=== PATIENT | female | born 1930 | race Caucasian/White ===

== ENCOUNTER 2019-06-03 11:59 | Inpatient (IN) | payer MEDICARE ==
--- NOTE | 2019-06-03 12:50 | RAD ---
EXAM: Single view of the chest HISTORY: Weakness and cough COMPARISON: 05/10/2019 FINDINGS: Single view of the chest shows an enlarged but stable cardiomediastinal silhouette. Athero sclerotic calcifications are seen in the aorta. There is no evidence of consolidation, mass, or pleural effusion. The bones are unremarkable. IMPRESSION: Cardiomegaly without evidence of acute cardiopulmonary disease
[2019-06-03 13:04] LABS: Bacteria/HPF None Seen HPF (None Seen); Bilirubin Negative (Negative); Blood, Urine Negative (Negative); Clarity Turbid (Clear); Glucose, Urine (Dipstick) Normal (Negative); Leukocyte Negative Leu/uL (Negative); Nitrite Negative (Negative); Protein, Urine (Dipstick) 70 mg/dL (Neg-Trace); RBC/HPF 0-3 HPF (0-3); Squamous Epithelial 0-3 HPF (0-3); WBC/HPF 0-3 HPF (0-3)
[2019-06-03 13:12] LABS: #Lymphocytes 0.6 thou/uL (1.20-3.40); #Monocytes 0.6 thou/uL (0.11-0.59); #Neutrophils 5.6 thou/uL (1.40-6.50); %Eosinophils 0.1 % (0.0-10.0); %Lymphocytes 9.4 % (21.0-51.0); %Monocytes 8.7 % (0.0-10.0); %Neutrophils 81.8 % (42.0-75.0); Hemoglobin 6.1 g/dL (12.0-16.0); Mean Corpuscular HGB CONC 31.3 g/dL (32.0-36.0); Mean Corpuscular Hemoglobin 27.1 pg (27.0-31.0); Mean Corpuscular Volume 86.6 fL (78.0-98.0); Mean Platelet Volume 9.2 fL (7.4-10.4); Platelet Count 255 thou/uL (130-400); RBC Distribution Width 17.9 % (11.5-14.5); Red Blood Cell (RBC) Count 2.26 mill/uL (4.20-5.40); White Blood Cell (WBC) Count 6.8 thou/uL (4.8-10.8)
[2019-06-03 13:15] LABS: Bicarbonate (HCO3v) 23.7 mmol/L (22.0-28.0); CO2 Tension (PvCO2) 32.8 mmHg (40.0-50.0); Calcium, Ionized 0.86 mmol/L (See Comments:); Chloride 92 mmol/L (98-107); Potassium 4.2 mmol/L (3.5-5.1); Sodium 132 mmol/L (138-145); T. Carbon Dioxide 24.7 mmol/L (22.0-28.0); vO2 Saturation-calc 85.1 % (60.0-85.0)
[2019-06-03 13:42] LABS: ALT (SGPT) 249 U/L (8-55); AST (SGOT) 380 U/L (5-34); Albumin 3.2 g/dL (3.4-4.8); Alkaline Phosphatase 57 U/L (40-110); Anion Gap 28 mmol/L (10-20); BUN (Urea Nitrogen) 35 mg/dL (9.8-20.1); Bilirubin, Total 0.8 mg/dL (0.2-1.2); Calc. Creatinine Clearance 0 mL/min (70-130); Calcium 7.7 mg/dL (7.8-10.44); Carbon Dioxide 22 mmol/L (23-31); Chloride 90 mmol/L (98-107); Estimated GFR-MDRD 22; Globulin 2.3 g/dL (2.4-3.5); Glucose 140 mg/dL (83-110); Lipase 15 U/L (8-78); Potassium 4.6 mmol/L (3.5-5.1); Protein, Total 5.5 g/dL (6.0-8.3); Sodium 135 mmol/L (136-145)
[2019-06-03 14:34] LABS: CKMB 107.5 ng/mL (0-6.6)
[2019-06-03] MEDS ORDERED: cefTRIAXone\\ROCEPHIN 2 GM VIAL ONE (14:46)
[2019-06-03 16:50] LABS: Lactic Acid 7.7 mmol/L (0.5-2.2)
[2019-06-03 17:15] LABS: Critical Call Chem Troponin I RESULT DECREASING; Troponin I 82.262 ng/mL (< 0.028)
[2019-06-03] MEDS ORDERED: Nitroglycerin 0.4 MG TAB (25 Tab Bottle) SL PRN (17:46)
[2019-06-03] MEDS ORDERED: Ondansetron PF 4 MG/2 ML Vial IVP PRN (17:46)
[2019-06-03] MEDS ORDERED: Ondansetron ODT 4 MG TAB PO PRN (17:46)
[2019-06-03] MEDS: Sodium Chloride 0.9% 1,000 ML IV SCH (18:11)
[2019-06-03 19:20] VITALS: BMI 20.6
[2019-06-03 19:47] LABS: Troponin I 96.784 ng/mL (< 0.028)
[2019-06-03] MEDS: Pantoprazole 40 MG VIAL IVP SCH (20:20)
[2019-06-03] MEDS ORDERED: DOPamine 400 MG/D5W 250 ML 250 ML IVPB PRN (20:52)
[2019-06-03 22:49] LABS: Hemoglobin 9.1 g/dL (12.0-16.0); Platelet Count 198 thou/uL (130-400)
--- NOTE | 2019-06-04 00:34 | CON ---
DATE OF CONSULTATION: 06/03/2019 INDICATION FOR CONSULTATION: An 88-year-old female with what appears to be acute myocardial infarction. HISTORY OF PRESENT ILLNESS: This very unfortunate 88-year-old female apparently underwent a cardiac catheterization with probable stent placement or at least possible stent placement about a month ago, I believe over at [facility] by Dr. Roberto Jeffrey. She had been placed on Brilinta and 81 mg of aspirin as well as her other medications, which included a beta eun as well as a statin medication. She apparently lives at home, was doing relatively well, was brought in by adoption services manager or at least a neighbor, who is actually her power of workers compensation defense attorney due to severe weakness. She has been found to have severe anemia, hemoglobin was 6.1 with a hematocrit of 19.5. Her EKG showed acute ST-segment changes with T-wave inversions, which have actually somewhat improved since she has been here, but appears that she has suffered at least ischemia. 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 These have improved slightly after she has been given some blood. Her hemoglobin obviously is still pending. Her troponin I on arrival was 82.9, has increased up to, I believe is now 96. Her MB was 107.5. It appears that she has actually suffered a myocardial infarction, may have occluded her stent. I am uncertain as to where the stent was, IT certainly could have been left anterior descending artery. At this time, she is obviously not a candidate for cardiac roofing laborer since she used to have severe anemia. She denies any chest pain. It is possible that the [place] has already recurred several days ago and it is unclear. She also appears to be acidotic with lactic acid level of 11.8 on admission, which is now decreased to 7.7. She also has acute renal insufficiency with BUN of 35 and creatinine of 2.1. She is confused. She is able to give me very little history. She mainly just wants to leave the hospital and wants water, otherwise I cannot get much information from the patient. Most of the information is obtained from the medical records. She also has been complaining of some chills and weakness as well as some nausea and vomiting. It appears that she became dehydrated also. I do not know whether she has been taking her medications at home. PAST MEDICAL HISTORY: Significant for anemia. She has history of aortic valve stenosis, hypertension. She has had a hysterectomy. She has history apparently of angioplasty and stent placement. She was to go down to [place] and had an appointment, appears to be in the mid June to undergo possible bypass surgery or at least to be evaluated for possible surgery. ALLERGIES: NONE. MEDICATIONS: Prior to admission include aspirin, Lipitor, metoprolol, and Brilinta. REVIEW OF SYSTEMS: Not obtainable. PHYSICAL EXAMINATION: GENERAL: Reveals an elderly, fragile, ill-appearing female, who is confused. VITAL SIGNS: Blood pressure was anywhere between 82/50 to 131/110, heart rates in the 50s, shows what appears to be junctional rhythm. Respiratory rate is 20. She does have EKG changes as noted above. She is not complaining of anything, however, just wants to leave. HEENT: Shows the head to be normocephalic and atraumatic. Her chest is actually clear to auscultation. CARDIOVASCULAR: Regular rhythm at this time. She has a systolic murmur at the apex as well as over the aortic area compatible with most likely mitral valve regurgitation and aortic valve stenosis. ABDOMEN: Soft. She denies any tenderness. I cannot feel any masses. EXTREMITIES: Showed no clubbing or cyanosis. There is no edema. Pedal pulses, I cannot palpate at this time. NEUROLOGIC: It is noted the patient is confused. LABORATORY DATA: Shows a sodium of 135, BUN of 35, creatinine is 2.1, potassium is 4.6. Troponin I is up now as noted to 96.7, and CPK-MB was 107. Her hemoglobin is 6.1, hematocrit 19.5, WBC of 6.8, and platelet count was 255,000. IMPRESSION: 1. Elderly female, who most likely has suffered a myocardial infarction with possible occlusion of a previously placed stent. The nausea, vomiting, and the decreased output, which resulted in her metabolic acidosis, most likely could certainly be due to the myocardial infarction. We will try to obtain an echocardiogram for evaluation of left ventricular systolic function. I will also try to contact her steam shovel oiler to see exactly what was done and to see what her status was prior to undergoing the procedure. At this time, she is not a candidate to go to the cardiac roofing laborer due to the severe anemia, the renal insufficiency, and her poor overall status. At this time, I cannot give her heparin as no way to do an intervention with her hemoglobin at 6.1. She does not have any family members available and the neighbor apparently acts as her power of workers compensation defense attorney. No one is available at this time to discuss further issues with the patient, but I will need to discuss code status with this elderly 88-year-old female with multiple medical problems at this time, who appears to be feeble, confused, and suffering a myocardial infarction. 2. Hypertension. She is obviously stable at this time, but may become hypotensive. This person at this time is in certainly a grave situation and may not survive the night depending on whether or not she is able to continue with heart rate. I have suggested that if the heart rate goes below 50 that we start her on some dopamine. Her blood pressure is holding at this time, but she certainly may john down and then have a cardiac arrest. We do not have a code status at this time. We will be more than happy to continue to follow the patient with you, but obviously her prognosis is extremely poor. Job ID: [id number]
[2019-06-04 01:47] LABS: Hemoglobin 9.2 g/dL (12.0-16.0); Platelet Count 197 thou/uL (130-400)
[2019-06-04 07:12] LABS: #Lymphocytes 0.9 thou/uL (1.20-3.40); #Monocytes 0.7 thou/uL (0.11-0.59); #Neutrophils 10.1 thou/uL (1.40-6.50); %Eosinophils 0.2 % (0.0-10.0); %Lymphocytes 7.7 % (21.0-51.0); %Monocytes 6.2 % (0.0-10.0); %Neutrophils 85.9 % (42.0-75.0); Hemoglobin 9.2 g/dL (12.0-16.0); Mean Corpuscular HGB CONC 33.5 g/dL (32.0-36.0); Mean Corpuscular Hemoglobin 28.7 pg (27.0-31.0); Mean Corpuscular Volume 85.7 fL (78.0-98.0); Mean Platelet Volume 9.4 fL (7.4-10.4); Platelet Count 186 thou/uL (130-400); Platelet Count 197 thou/uL (130-400); RBC Distribution Width 16.3 % (11.5-14.5); Red Blood Cell (RBC) Count 3.19 mill/uL (4.20-5.40); White Blood Cell (WBC) Count 11.8 thou/uL (4.8-10.8)
[2019-06-04 07:25] LABS: Anion Gap 19 mmol/L (10-20); BUN (Urea Nitrogen) 45 mg/dL (9.8-20.1); Calc. Creatinine Clearance 13 mL/min (70-130); Calcium 7.1 mg/dL (7.8-10.44); Carbon Dioxide 22 mmol/L (23-31); Cardiac Risk 2.8 (Less than 4.5); Chloride 97 mmol/L (98-107); Cholesterol 114 mg/dl (< 200 Desired); Estimated GFR-MDRD 20; Glucose 101 mg/dL (83-110); HDL Cholesterol 41 mg/dL (>60 Neg Risk); LDL Cholesterol, Calculated 54 mg/dL; Potassium 4.1 mmol/L (3.5-5.1); Sodium 134 mmol/L (136-145); Triglycerides 94 mg/dL (Less than 150)
[2019-06-04] MEDS ORDERED: FLU VACC TS2019-20(65YR UP)/PF 180 MCG/0.5 ML SYRINGE IM ONE (09:00)
[2019-06-04] MEDS ORDERED: Prevnar 13-Val Conj/PF 0.5 ML SYRINGE IM ONE (09:00)
--- NOTE | 2019-06-04 09:19 | CON ---
DATE OF CONSULTATION: 06/04/2019 This encompassed 70 minutes of time, of that time, greater than 50% was spent with the patient and/or the patient's unit in the hospital. REASON FOR CONSULTATION: ICU management. HISTORY OF PRESENT ILLNESS: This is an 88-year-old female, who presented to the emergency room with severe weakness. She was found to have ST-segment elevation in her anterior leads along with T-wave inversion. She had, had a stent placed about a month ago at [facility]. She apparently needed bypass, but that could not be done. She also need a valve replacement, but she left before that can be accomplished. She is confused, cannot give history. She has 2 neighbors and they are with her, whom seem like nice people but do not have a power of attorney lawyer. PAST MEDICAL HISTORY: 1. Anemia. 2. Aortic stenosis. 3. Hypertension. 4. Coronary artery disease. PAST SURGICAL HISTORY: Cardiac catheterization. ALLERGIES: NONE. MEDICATIONS: Prior to admission; 1. Lipitor. 2. Aspirin. 3. Metoprolol. 4. Brilinta. REVIEW OF SYSTEMS: The patient will not cooperate with any exam there. Full review of systems cannot be obtained. PHYSICAL EXAMINATION: VITAL SIGNS: Temperature 97, pulse 74, and blood pressure 181/85. HEENT: Unremarkable. NECK: No adenopathy or JVD. LUNGS: Crackles in the bases. CARDIOVASCULAR: S1 and S2, regular. She has a 3/6 holosystolic murmur. ABDOMEN: Soft and nontender. EXTREMITIES: No clubbing, cyanosis, or edema. LABORATORY DATA: White blood cell count 11.8, hematocrit 27.5, and platelet count 186. Sodium 134, potassium 4.1, chloride 97, CO2 of 22, BUN 45, and creatinine 2.3. Troponin 96. IMAGING DATA: Her chest x-ray shows cardiomegaly without evidence of mass, effusion, or infiltrate. ASSESSMENT: 1. Myocardial infarction. 2. Aortic stenosis. 3. Hypertension. 4. Severe anemia, etiology unclear. PLAN: Care at this point is mainly supportive. She received transfusion last night. It does not appear that she will do well. I have spoken to the friends at the bedside. I encouraged them to go see a operator catalyst concentration and get a power of attorney lawyer. Job ID: [id number]
--- NOTE | 2019-06-04 09:31 | PDOC.HOSPP ---
- Subjective Encounter Date: 06/04/19 Encounter Time: 09:28 Subjective: Mr. Knutson was seen today in follow-up of NSTEMI, and GI bleed. The patient is curled up in position, and does not talk. Her friend and neighbor is at the bedside. She had a little agitation last night. - Objective Vital Signs & Weight: Vital Signs (12 hours) Temp 06/04/19 05:00 97.0 F L 06/04/19 00:00 97.8 F Weight Weight 105 lb 9.623 oz Most Recent Monitor Data Heart Rate from ECG 74 NIBP 181/85 NIBP BP-Mean 117 Respiration from ECG 19 SpO2 91 I&O: 06/03/19 06/04/19 06/05/19 06:59 06:59 06:59 Intake Total 336 Output Total 101 Balance 235 Result Diagrams: 06/04/19 06:47 06/04/19 06:46 Hospitalist ROS - Medication Medications: Active Medications Generic Name Dose Route Start Last Admin Trade Name Freq PRN Reason Stop Dose Admin Sodium Chloride 1,000 mls @ 75 mls/hr 06/03/19 17:46 06/03/19 18:11 Normal Saline 0.9% IV Not Given .[id number] Pantoprazole Sodium 40 mg 06/03/19 21:00 06/03/19 20:20 Protonix IVP 40 mg Q12HR SANJU Administration - Exam Eye: PERRL Respiratory: CTAB, no wheezes, no rales, no ronchi, normal chest expansion Gastrointestinal: soft, non-tender, non-distended, normal bowel sounds Extremities: no cyanosis, 1+ LE edema Hosp A/P (1) NSTEMI (non-ST elevated myocardial infarction) Code(s): I21.4 - NON-ST ELEVATION (NSTEMI) MYOCARDIAL INFARCTION Status: Acute (2) GI bleed Code(s): K92.2 - GASTROINTESTINAL HEMORRHAGE, UNSPECIFIED Status: Acute (3) Acute blood loss anemia Code(s): D62 - ACUTE POSTHEMORRHAGIC ANEMIA Status: Acute (4) CAD (coronary artery disease) Code(s): I25.10 - ATHSCL HEART DISEASE OF [place] CORONARY ARTERY W/O ANG PCTRS Status: Chronic - Plan * Acute NSTEMI- Cardiology evaluation noted * Due to severe anemia, and GI bleed, she is unable to receive any anticoagulation * Her blood pressure was also marginal, and unable to give nitrate, or beta- eun * She is too weak to undergo EGD or colonoscopy to evaluate the anemia/GI bleed * Continue to transfuse as needed * Prognosis is poor * Discussed with the friend. ( the patient gave me verbal consent last night to discuss her medical condition with the friend ( Radha Bright) and also when I asked the patient last night who she wants to help make her medical decisions if she is not able- she pointed to Radha. I asked her who, to verify, and she told me " her". I will consult Palliative Care so we can clarify who is/ should be the MPOA or Surrogate decision maker going forward.
[2019-06-04] MEDS: Pantoprazole 40 MG VIAL IVP SCH ×2 (10:06→21:21)
[2019-06-04] MEDS: Sodium Chloride 0.9% 1,000 ML IV SCH (10:10)
--- NOTE | 2019-06-04 10:27 | HP ---
PRIMARY CARE PHYSICIAN: Geovanni Hernandez MD CHIEF COMPLAINT: Feeling extremely weak and nausea and vomiting. HISTORY OF PRESENT ILLNESS: The history of present illness is taken from the patient's neighbor, who actually helps to take care of the patient. The patient is an extremely poor historian and basically says that she feels "fine." Ms. Barboza is an 88-year-old female, who has a history of hypertension and was just recently diagnosed with coronary artery disease. She apparently was hospitalized at the [facility], where she was found to have coronary artery disease and was told that she needed a triple bypass. She was also told she had severe aortic stenosis and needed a valve replacement. However, apparently due to her advanced age and other patient characteristics, she only underwent a stent placement, and the valve surgery and bypass was put off. She was displaced on Brilinta as well as aspirin and atorvastatin and was discharged home. The patient's neighbor says that in the last 3-4 days, she has basically stopped eating. She says that nothing "tastes good" and in the interim, she has been taking [place] and last night she started vomiting, which look like some clear substance, but no blood that they could tell. She denies having any abdominal pain, but was feeling extremely weak and thought to the point where she could barely walk or to barely stand. The patient's neighbor noticed that she had some dark stool in her pad. She also looked like she was short of breath. She brought her to the emergency room for evaluation. She was found to be severely anemic with a hemoglobin of 6.1. Her troponin was elevated at 82 and her lactic acid was elevated at 11.8. She is being admitted for acute GI bleed as well as NSTEMI and possible sepsis. REVIEW OF SYSTEMS: All systems were reviewed and are negative except for that mentioned in the history of present illness. PAST MEDICAL HISTORY: Significant for hypertension and coronary artery disease, as well as aortic stenosis. PAST SURGICAL HISTORY: She had a recent coronary stent placed on May 14 and possibly had cardiac catheterization, although I do not have these records. ALLERGIES: NO KNOWN DRUG ALLERGIES. SOCIAL HISTORY: She is a former smoker. There is no alcohol use and she has no living children. Her sister lives in [place], but when I mentioned the sister's name, the patient basically shot up and said do not tell her anything. She wants Radha, who is the neighbor to be the surrogate decision maker and code status is full code. FAMILY HISTORY: Unknown. CURRENT MEDICATIONS: Include; 1. Lisinopril 10 mg twice a day. 2. Brilinta 90 mg daily. 3. Aspirin 81 mg a day. 4. Atorvastatin 40 mg daily. 5. Metoprolol 25 mg twice daily. PHYSICAL EXAMINATION: GENERAL: She is alert and oriented. She appears to be in no acute distress. She is well developed and well nourished. VITAL SIGNS: Blood pressure was 97/40, heart rate is in the 60s, respiratory rate of 16, and she is currently afebrile. HEENT: Pupils are equal, round, and reactive. Extraocular muscles are intact. Her sclerae are anicteric. Throat, there is no erythema, no exudates. NECK: No adenopathy. No bruits. LUNGS: Clear to auscultation. There was no wheezing, no rales, no rhonchi. CARDIOVASCULAR: She has a normal S1, S2. No S3. No S4. She did have a grade 2/6 systolic murmur, which radiated to the carotids and also into the axilla. ABDOMEN: Soft. It is nontender and nondistended. Positive for bowel sounds. There is no rebound. No guarding. No organomegaly. EXTREMITIES: There is no clubbing or cyanosis. No edema. No calf tenderness. No joint effusions. NEUROLOGIC: Exam is nonfocal. LABORATORY DATA: Sodium is 135, potassium 4.6, chloride is 90, CO2 is 22, BUN of 35, creatinine of 2.1, glucose is 140, lactic acid is 11.8, AST is 380, ALT is 249. Her troponin was 82.9. White blood cell count 6.8, hemoglobin 6.1, hematocrit is 19.5, and platelet count is 255. Urinalysis was essentially negative. No bacteria. On her chest x-ray, there is evidence of cardiomegaly. There is no evidence of any airspace disease or blunting of the costophrenic angles and no evidence of any pleural effusion and this is by my reading. Also, she had an EKG done, which was also read by me and the rhythm was sinus, the rate was in the 70s. She had some ST-segment depressions in lead 1 and aVL as well as V4 through V6. ASSESSMENT: This is a pleasant 88-year-old female, who presents to the emergency room with generalized weakness. She was found to be severely anemic as well as an elevated troponin and elevated creatinine. 1. She appears to have a non ST-segment elevated myocardial infarction. This is in the setting of known coronary artery disease, in which it had already been recommended that she undergo revascularization. We will consult our senior sales operations manager. We will need to get the records from Dr. Jeffrey and unfortunately, due to the potential GI bleed, we will have to hold off on any anticoagulation at this time. Her blood pressure is also too low for nitrites and beta blockers. We will have to defer to Cardiology with regard to further recommendations. 2. Possible gastrointestinal bleed. She is being typed and crossed and transfused for [address] her on IV Protonix and consult GI for further recommendations and once again hold any anti-inflammatory medications or anticoagulation. 3. Elevated lactic acid. It is possible this could be related to sepsis, but there is no source. I suspect this is due to hypoperfusion from the possible gastrointestinal bleed and [id number] myocardial infarction. 4. Acute kidney injury. It is unclear from our records what her baseline creatinine is, but I suspect she likely has some prerenal azotemia. We will do cautious fluid resuscitation and follow this clinically. Consider Nephrology consult should her creatinine not improve. Otherwise, the patient is being admitted initially to the critical care unit due to her multiple medical problems and her advanced age and further recommendations to follow. Job ID: [id number]
[2019-06-04 10:53] LABS: Troponin I 105.906 ng/mL (< 0.028)
--- NOTE | 2019-06-04 10:56 | PDOC.PALCO ---
Palliative Care Consult - Consult Details Requesting Physician: Dr Ambrosio Reason for Consult: goals of care, advance directives assistance Family Members Present: Family friend, Radha Bright - Pertinent HPI 88 year old female who recently was told shehad cardiovascual disease and needed a triple bypass and aortic valve replacement, however secondary to age only a stent was done. Radha Deangelo (famiy friend) reports patient had recent decline over the past few days with increase in weakness, decrease in intake, increase in shortness of breath, and dark stool. Episode of vomiting x 1. Taken to the emergency room for evaluation and was noted to have a NSTEMI, and GI Bleed. Patient only living relative is her sister, who she asked not to be called. Patient has no designated MPOA. - Pertinent PMH CAD, Aortic stenosis, HTN - Social History Smoking Status: Former smoker Alcohol Use: none Drug Use History: none Living Situation: independent - Medications MAR Reviewed: Yes - Allergies Allergies/Adverse Reactions: Allergies Allergy/AdvReac Type Severity Reaction Status Date / Time No Known Allergies Allergy Verified 06/03/19 17:44 - Subjective Restless, anxious. Unable to give meaningful input to assessment. Radha Deangelo family friend at bedside. - ROS Non Response: due to mental status Constitutional: distress - Objective Vital Signs: Vital Signs - Most Recent Temp Pulse Resp BP Pulse Ox 97.6 F 99 06/04/19 08:00 06/03/19 20:00 Palliative Performance Scale: 30 - Physical Exam Constitutional: encephalitic, ill appearing, moderate distress HEENT: moist MMs, sclera anicteric Respiratory: tachypnea Cardiovascular: irregular Gastrointestinal: non-tender, positive bowel sounds Musculoskeletal: pulses present, muscle wasting Neurology: moves all 4 limbs Skin: fragile, friable Deviation from normal: fair turgor Deviation from normal: restless - Problem List (1) Palliative care encounter Code(s): Z51.5 - ENCOUNTER FOR PALLIATIVE CARE Current Visit: Yes Status: Acute (2) Acute blood loss anemia Code(s): D62 - ACUTE POSTHEMORRHAGIC ANEMIA Current Visit: Yes Status: Acute (3) GI bleed Code(s): K92.2 - GASTROINTESTINAL HEMORRHAGE, UNSPECIFIED Current Visit: Yes Status: Acute (4) NSTEMI (non-ST elevated myocardial infarction) Code(s): I21.4 - NON-ST ELEVATION (NSTEMI) MYOCARDIAL INFARCTION Current Visit : Yes Status: Acute (5) CAD (coronary artery disease) Code(s): I25.10 - ATHSCL HEART DISEASE OF [place] CORONARY ARTERY W/O ANG PCTRS Current Visit: Yes Status: Chronic - Plan/Recommendations Plan: Patient restless and unable to participate in conversation. Radha Bright is family friend and has been involved with Ms Barboza for greater than 10 years. Patient has one living relative (he sister) who she does not currently have a relationship with. Patient had previous stated that she desired to have Mrs Bright make medical decisions if needed. Will attempt to locate patient sister and contact her requesting her to confirm Radha Bright as MPOA while patient unable to make decisions for herself. Secondary to fragile state and previous anticoag therapy paired with age and current health status options are limited for treatment/management of current health conditions. After determining MPOA for patient or as patient capacity to make a medical condition presents goals of care will be further identified. Channing Pretty RNfolding machine setter attempting to facilitate locating and contacting patient sister for designation of MPOA, as is inline with [place] [employer]. Please refer to her notes for further information. [45] minutes spent on this encounter with >50% of the time in counseling and coordination of care. Thank you for this very appropriate consult.
--- NOTE | 2019-06-04 12:18 | PDOC.CPN ---
- Subjective Date: 06/04/19 Time: 12:26 Interval history: The pt seen and examined. She is very restless today, but she can follow commands. - Objective Allergies/Adverse Reactions: Allergies Allergy/AdvReac Type Severity Reaction Status Date / Time No Known Allergies Allergy Verified 06/03/19 17:44 Visit Medications: Current Medications Acetaminophen (Tylenol) 650 mg PO Q4H PRN PRN Reason: Headache/Fever/Mild Pain (1-3) Sodium Chloride (Normal Saline 0.9%) 1,000 mls @ 75 mls/hr IV .[id number] [facility] Last Admin: 06/04/19 10:10 Dose: 1,000 mls Dopamine HCl/Dextrose (Dopamine 400 Mg/D5w 250 Ml) 250 mls @ 0 mls/hr IVPB INF PRN; Protocol PRN Reason: IF HR < 50 BPM, SUSTAINED Nitroglycerin (Nitrostat) 0.4 mg SL Q5MIN PRN PRN Reason: Chest Pain Ondansetron HCl (Zofran Odt) 4 mg PO Q6H PRN PRN Reason: Nausea/Vomiting Ondansetron HCl (Zofran) 4 mg IVP Q6H PRN PRN Reason: Nausea/Vomiting Pantoprazole Sodium (Protonix) 40 mg IVP Q12HR [facility] Last Admin: 06/04/19 10:06 Dose: 40 mg Vital Signs & Weight: Vital Signs Temp 06/04/19 08:00 97.6 F 06/04/19 05:00 97.0 F L Admit Weight 105 lb Weight 105 lb 9.623 oz - Physical Exam HEENT: mucus membranes moist Neck: supple neck Cardiac: regular rate and rhythm, S1/S2 Lungs: decreased breath sounds - Labs Result Diagrams: 06/04/19 06:47 06/04/19 06:46 Troponin/CKMB CK-MB (CK-2) 107.5 ng/mL (0-6.6) H* 06/03/19 13:02 Troponin I 105.906 ng/mL (< 0.028) H* 06/04/19 06:40 - Telemetry Sinus rhythms and dysrhythmias: sinus rhythm - Assessment/Plan Assessment/Plan: 1. NSTEMI - trop cont. elevating; 2. CAD with s/p stent - holding Brelinta and ASA; 3. Acute blood loss anemia - Hgb level is > 9 with total 2 units PRBCs 4. HTN - stable 4. Severe MAR reviewed Pt. seen and eval. by me. Discussed with Dr. Jeffrey. She had a recent stent placed to the left Circumflex. The RCA is totally occluded, chronic. The distal RCA fills from the distal circumflex. The LAD was heavily calcified and underwent balloon angioplasty without stent placement. The EF at cath was 55-60% . The plan was to see if she was a candidate for TAVR. 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 The EF today also indicates an EF of 40-45%, the apex,distal ant wall and distal lateral wall are akinetic to dyskinetic. I suspect she occluded the mid LAD at the site of the recent PTCA.. This is a problem situation for this elderly pt. with a drug coated stent in the L-circ, and GI bleeding without antiplatelet medication she may occlude the L-circumflex which also supplies the distal RCA. . the Hgb. is stable after transfusion. She has now developed intermittent atrial fib. Started on amiodarone. Chest is clear on my exam. Slightly irregular rhythm with controlled ventricular response. No edema. She has decreased u/o. She may need volume. I will restart her on IV fluids or po fluids. Prognosis is very guarded. tati
[2019-06-04 13:41] LABS: Critical Call Chem Troponin I RESULT DECREASING; Troponin I 78.697 ng/mL (< 0.028)
--- NOTE | 2019-06-04 16:43 | EKG ---
Test Reason : NSTEMI Blood Pressure : / mmHG Vent. Rate : 062 BPM Atrial Rate : 052 BPM P-R Int : 000 ms QRS Dur : 118 ms QT Int : 430 ms P-R-T Axes : 000 -35 153 degrees QTc Int : 436 ms Junctional rhythm Left axis deviation Cannot rule out Anterior infarct , age undetermined Abnormal ECG No previous ECGs available Confirmed by DR. Yolanda CESAR (3) on 06/04/2019 4:42:36 PM Referred By: Diane MACARIO Confirmed By:DR. Yolanda CESAR
[2019-06-04 17:26] LABS: CO2 Tension 32.8 mmHg (35.0-45.0); Calcium, Ionized 0.93 mmol/L (1.12-1.30); Carboxyhemoglobin (COHb) 0.6 gm% (0.0-3.0); Hemoglobin (Hb) 9.9 g/dL (12.0-16.0); O2 Tension (PaO2) 96.2 mmHg (> 60.0); Potassium - ABG Lab 3.93 mmol/L (3.70-5.30); pH, Arterial 7.33 (7.35-7.45)
[2019-06-04 17:28] LABS: Puncture Site RRA
[2019-06-04] MEDS ORDERED: Furosemide 40 MG/4 ML VIAL SLOW IVP SCH (17:45)
[2019-06-04] MEDS: Amiodarone 450 MG, Admixture Fee 1 EACH in Dextrose 5% in Water 250 ML IVPB SCH (17:56)
[2019-06-04] MEDS ORDERED: Lorazepam 0.5 MG TAB PO SCH (21:15)
[2019-06-05] MEDS: Amiodarone 450 MG, Admixture Fee 1 EACH in Dextrose 5% in Water 250 ML IVPB SCH ×2 (03:08→17:41)
[2019-06-05 04:20] LABS: ALT (SGPT) 2368 U/L (8-55); AST (SGOT) 2312 U/L (5-34); Albumin 3.2 g/dL (3.4-4.8); Alkaline Phosphatase 66 U/L (40-110); Anion Gap 25 mmol/L (10-20); BUN (Urea Nitrogen) 56 mg/dL (9.8-20.1); Bilirubin, Total 2.4 mg/dL (0.2-1.2); Calc. Creatinine Clearance 12 mL/min (70-130); Calcium 7.2 mg/dL (7.8-10.44); Carbon Dioxide 19 mmol/L (23-31); Chloride 94 mmol/L (98-107); Estimated GFR-MDRD 19; Globulin 2.5 g/dL (2.4-3.5); Glucose 73 mg/dL (83-110); Potassium 4.1 mmol/L (3.5-5.1); Protein, Total 5.7 g/dL (6.0-8.3); Sodium 134 mmol/L (136-145)
[2019-06-05] MEDS: Acetaminophen 325 MG TAB PO PRN (04:32)
[2019-06-05 04:43] LABS: Critical Call Chem Troponin I RESULT DECREASING; Troponin I 57.196 ng/mL (< 0.028)
[2019-06-05 04:54] LABS: #Eosinphils 0.1 thou/uL (0.0-0.7); #Lymphocytes 0.8 thou/uL (1.20-3.40); #Monocytes 1.3 thou/uL (0.11-0.59); #Neutrophils 17.7 thou/uL (1.40-6.50); %Eosinophils 0.4 % (0.0-10.0); %Lymphocytes 4.1 % (21.0-51.0); %Monocytes 6.5 % (0.0-10.0); Hemoglobin 8.9 g/dL (12.0-16.0); Mean Corpuscular HGB CONC 34.2 g/dL (32.0-36.0); Mean Corpuscular Hemoglobin 29.7 pg (27.0-31.0); Mean Corpuscular Volume 86.8 fL (78.0-98.0); Mean Platelet Volume 10.3 fL (7.4-10.4); Platelet Count 100 thou/uL (130-400); RBC Distribution Width 16.7 % (11.5-14.5); White Blood Cell (WBC) Count 19.9 thou/uL (4.8-10.8)
[2019-06-05 04:55] LABS: MDiff Complete? YES; Platelet Morphology Comment Appears Decreased; Polychromasia SLIGHT = 2-3 cells (100X) (0-2/hpf)
--- NOTE | 2019-06-05 08:09 | PRG ---
DATE OF SERVICE: 06/05/2019 SUBJECTIVE: This patient is much more alert than she was yesterday when I saw her. She still has a great deal of difficulty expressing herself. OBJECTIVE: VITAL SIGNS: On exam, temperature is 97.6, pulse 76, blood pressure 121/78, and O2 saturation in the low 90s on nasal cannula. HEENT: Unremarkable. NECK: No adenopathy or JVD. LUNGS: Few crackles in the bases. CARDIOVASCULAR: S1 and S2 regular with 3/6 systolic murmur. ABDOMEN: Soft. EXTREMITIES: No edema. LABORATORY DATA: White blood cell count 19.9, hematocrit 26.1, and platelet count 100. Sodium 134, potassium 4.1, chloride 94, CO2 of 19, BUN 56, creatinine 2.4, glucose 73, AST 2312, ALT 2368. Troponin down to 57. ASSESSMENT: 1. Large myocardial infarction. 2. Aortic stenosis. 3. Hypertension. 4. Anemia. PLAN: She is stable from Pulmonary standpoint and can likely be transferred out to telemetry or to the IMCU. It looks like this is all going to be treated conservatively. Palliative care is trying to identify next of kin to make decisions. Her prognosis is quite poor for functional recovery. Pulmonary will follow while she is in the ICU, but we will sign off when she goes to the floor. Job ID: [id number]
--- NOTE | 2019-06-05 08:36 | CON ---
DATE OF CONSULTATION: 06/04/2019 REASON FOR CONSULTATION: Possible melena/GI bleeding. CONSULTING PROVIDER: Juan Ambrosio MD HISTORY OF PRESENT ILLNESS: The patient is an 88-year-old female with past medical history of hypertension, anemia, critical aortic stenosis, and coronary artery disease status post stent placement approximately 1 month ago, presenting with complaints of nausea, vomiting, and weakness. Interview with the patient was significantly difficult with the patient prompting "go away, I feel fine," so the majority of the information was obtained from the patient's neighbor who has been taking care of the patient for the last 5 to 10 years. Per the patient's neighbor, she states that she was in her usual state of health until approximately 1 to 2 weeks ago when she began to have progressive worsening nausea, abdominal discomfort, decreased appetite, and weakness. With this decreased abdominal discomfort, she further adds that it was not characterized as a pain per se, but did prompt the patient to take antacids/Enma-Crawford with improvement in her symptoms. Since her stent placement approximately 1 month ago, she had been taking intermittent ibuprofen around once daily in relation to general aches and pains as well as cardiac catheterization that was done at that time. However, approximately 20 hours prior to admission, she began having increased nausea and vomiting x2 with nonbloody emesis, but late last night, experienced 1 episode of a dark black liquid stool that had increased odor, it was difficult to clean per the patient's neighbor. With the increased weakness, decreased appetite, and these darker colored stools that were concerning for bleeding, it then prompted her caregiver to bring her to [facility] for further evaluation. Upon initial evaluation within the ER, she was noted to have an ST-elevation DE on EKG as well as significantly elevated troponins and was admitted to the cardiac intensive care unit for further management. Since being admitted to the hospital, the patient has not had any further episodes of GI bleeding consistent with melena nor has she had any hematemesis or hematochezia. At the current time, she states that she "feels fine" with no expression of pain or problems. Currently, she denies any fevers, chills, dysphagia, or odynophagia. REVIEW OF SYSTEMS: Difficult to obtain due to the patient's uncooperativeness with the interview. PAST MEDICAL HISTORY: As per HPI. PAST SURGICAL HISTORY: Cardiac catheterization 1 month ago with stent placement x1, (recommendations for 3-vessel bypass were made at that time as well). FAMILY HISTORY: Denies any GI malignancies. SOCIAL HISTORY: Denies any tobacco, alcohol, or illicit drug use. OUTPATIENT MEDICATIONS: 1. Lisinopril 10 mg twice daily. 2. Brilinta 90 mg daily. 3. Aspirin 81 mg daily. 4. Atorvastatin 40 mg daily. 5. Metoprolol 25 mg twice daily. 6. Iron supplementation once daily. ALLERGIES: NO KNOWN DRUG ALLERGIES. PHYSICAL EXAMINATION: VITAL SIGNS: Temperature 97.8, pulse 88, blood pressure 160/85, respiratory rate 21, and saturating 97% on room air. GENERAL: The patient was lying in bed, in no acute distress. Alert and oriented x4. Uncooperative to interview. HEENT: Normocephalic and atraumatic. Neck is supple. No JVD or scleral icterus noted. CARDIOVASCULAR: Tachycardic rate, but regular rhythm. High-pitched 3/6 systolic murmur was best heard at the left upper sternal border. No discernable rubs. RESPIRATORY: Clear to auscultation in the bilateral upper lung braga; however, possible mild wheezing auscultated in bilateral lower lung braga. ABDOMEN: Normoactive bowel sounds. Soft, nontender, and nondistended. EXTREMITIES: No cyanosis, clubbing, or edema. LABORATORY DATA: CBC with a white blood cell count of 11.8, hemoglobin 9.2, hematocrit 27.3, and platelets 197. Chemistry with a sodium of 134, potassium 4.1, chloride 97, CO2 of 22, BUN 45, creatinine 2.35, and glucose 101. AST 380, ALT 249, alkaline phosphatase 57, and total bilirubin 0.8. Lactic acid 7.7. Troponin 96.78 that up-trended to 105.90. Lipase 15. IMAGING DATA: Chest x-ray was obtained on 06/03/2019, which showed cardiomegaly without evidence of acute cardiopulmonary process. ASSESSMENT AND PLAN: The patient is an 88-year-old female with past medical history of hypertension, chronic anemia, critical aortic stenosis, and coronary artery disease status post stent placement 1 month ago, on anticoagulation, presenting with a darker colored stool yesterday, concerning for the presence of melena and elevated LFTs. Possible melena/gastrointestinal bleeding: The patient initially presented to the hospital with increased nausea, decreased appetite, and weakness that had been progressively worsening over the last 1 to 2 weeks. However, yesterday evening , she had 1 episode of a dark black liquid stool, concerning for the presence of bleeding within the upper gastrointestinal tract. Upon initial evaluation in the [facility] ER, she was noted to have a significant decrease in her hemoglobin and hematocrit with her hemoglobin of approximately 6.1. She was given 2 units of packed red blood cells with prompt response to her hemoglobin and hematocrit (in fact, greater than expected). Since admission to the hospital, she has not had any further episodes of melenic type stools nor has she had any hematochezia or hematemesis consistent with an upper gastrointestinal bleed. At this time, it is unclear as to what her baseline hemoglobin and hematocrit are, given her prior history of chronic anemia, for which the patient had been placed on iron supplementation. However, with admitting hemoglobin of 6.1, it is likely that she did have an episode of bleeding while on Brilinta. Her hemoglobin and hematocrit have been stable since then with no clinical evidence of further gastrointestinal bleeding in light of a significant elevation in her troponins, consistent with a current cardiac event/infarction. RECOMMENDATIONS: 1. We will continue to trend the patient's hemoglobin and hematocrit and transfuse as necessary to maintain hemoglobin and hematocrit of 7/21. 2. Continue to monitor clinically for signs of GI bleeding. 3. Given her significant cardiac history and profoundly elevated troponin in light of probable myocardial infarction, we will hold on endoscopic management at this time given her increased risk of complication in the ericka-procedure period. 4. Would defer to Cardiology Service for decision making related to anticoagulation. Given the stability of her H/H and lack of clinical evidence of GI bleeding, it could be potentially restarted with careful monitoring. If she has evidence of bleeding, we would then perform endoscopic management Elevated LFTs The patient is presenting with a modest elevation in her LFTs on admission in primarily a hepatocellular pattern. With her profound troponosis, the more likely etiology would be hypotension associated with her myocardial infarction that in turn created hypoxia to the liver parenchyma. Differential could also include hypotension and resultant ischemia, medication induced, lactic acidosis (related to hypotension), or chronic underlying liver disease (less likely). RECOMMENDATIONS: 1. Would continue to trend her LFTs as part of monitoring 2. Would attempt to optimize her blood pressure/cardiac status 3. Avoid any potential hepatotoxins We will continue to follow. Please call with any questions. DICTATION ENDS HERE Job ID: [id number] MTDD
--- NOTE | 2019-06-05 09:59 | PDOC.HOSPP ---
- Subjective Encounter Date: 06/05/19 Encounter Time: 09:58 Subjective: Ms. Barboza was seen today in follow-up of NSTEMI. She is awake and alert. No complaints other than she would like to have something to help her relax. - Objective Vital Signs & Weight: Vital Signs (12 hours) Temp 06/05/19 04:00 97.6 F 06/05/19 00:00 97.7 F Weight Admit Weight 105 lb Weight 105 lb 9.623 oz Most Recent Monitor Data Heart Rate from ECG 61 NIBP 159/79 NIBP BP-Mean 105 Respiration from ECG 17 SpO2 97 I&O: 06/04/19 06/05/19 06/06/19 06:59 06:59 06:59 Intake Total 336 1379 Output Total 101 552 Balance 235 827 Result Diagrams: 06/05/19 03:11 06/05/19 03:11 Hospitalist ROS - Medication Medications: Active Medications Generic Name Dose Route Start Last Admin Trade Name Freq PRN Reason Stop Dose Admin Acetaminophen 650 mg 06/03/19 17:46 06/05/19 04:32 Tylenol PO 650 mg Q4H PRN Administration Headache/Fever/Mild Pain (1-3) Amiodarone HCl 450 mg/ 259 mls @ 0 mls/hr 06/04/19 17:00 06/05/19 03:08 Miscellaneous Medication 1 IVPB 259 mls each/ Dextrose/Water INF SANJU Administration Protocol As Directed Pantoprazole Sodium 40 mg 06/03/19 21:00 06/04/19 21:21 Protonix IVP 40 mg Q12HR SANJU Administration - Exam Eye: PERRL Heart: RRR, no murmur, no gallops, no rubs, normal peripheral pulses Respiratory: CTAB, no wheezes, no rales, no ronchi, normal chest expansion, no tachypnea, normal percussion Gastrointestinal: soft, non-tender, non-distended, normal bowel sounds, no palpable masses, no hepatomegaly Extremities: 1+ LE edema (trace pedal edema) Hosp A/P (1) NSTEMI (non-ST elevated myocardial infarction) Code(s): I21.4 - NON-ST ELEVATION (NSTEMI) MYOCARDIAL INFARCTION Status: Acute (2) GI bleed Code(s): K92.2 - GASTROINTESTINAL HEMORRHAGE, UNSPECIFIED Status: Acute (3) Acute blood loss anemia Code(s): D62 - ACUTE POSTHEMORRHAGIC ANEMIA Status: Acute (4) CAD (coronary artery disease) Code(s): I25.10 - ATHSCL HEART DISEASE OF [place] CORONARY ARTERY W/O ANG PCTRS Status: Chronic - Plan * Acute NSTEMI- her cardiac enzymes are beginning to trend down * GI bleed-- continue Protonix BID- and transfuse as necessary. Her H&H is overall stable * Acute kidney injury- likely due to NSTEMI and hypoperfusion,- will avoid nephrotoxic medications, and consult Nephrology * Elevated LFT's again likely secondary to NSTEMI, and hypoperfusion * Prognosis is guarded
[2019-06-05] MEDS ORDERED: Lorazepam 0.5 MG TAB PO PRN (10:00)
[2019-06-05] MEDS: Pantoprazole 40 MG VIAL IVP SCH (10:04)
--- NOTE | 2019-06-05 13:31 | PQF ---
CLINICAL DOCUMENTATION IMPROVEMENT CLARIFICATION FORM: ICD-10 Updated PLEASE DO AN ADDENDUM TO THE PROGRESS NOTE WITH ANY DOCUMENTATION UPDATES OR ADDITIONS AND CARRY THROUGH TO DC SUMMARY. THANK YOU. DATE: 06/08/19 ATTN: DR. SHERIFF Please exercise your independent, professional judgment in responding to the clarification form. Clinical indicators are provided on the bottom of this form for your review Please check appropriate box(es): [ ] Sepsis due to: (Pna, UTI, gangrenous gall bladder, etc.) Due to: [ ] Device (please specify) [ ] SIRS due to non-infectious process (please specify etiology) [ ] with organ dysfunction [ ] without organ dysfunction [ ] Severe sepsis with acute organ dysfunction of: (Examples: respiratory failure, encephalopathy, acute kidney failure, other) [ ] Localized infection without sepsis [ ]x Other diagnosis No sepsis, she had a NSTEMI [ ] Unable to determine In addition, please specify: Present on Admission (POA): [ ] Yes [ ] No [ x] Unable to determine For continuity of documentation, please document condition throughout progress notes and discharge summary. Thank You. CLINICAL INDICATORS - SIGNS / SYMPTOMS / LABS / RESULTS AND LOCATION IN MR ER NOTE: "POSSIBLE SEPSIS" BP: 82/49 H&P 06/22: "ELEVATED LACTIC ACID. IT IS POSSIBLE THIS COULD BE RELATED TO SEPSIS " LACTIC ACID 06/03: 11.8 / 7.7 WBC 06/04: 11.8 WBC 06/05: 19.9 RISKS: FOSTER (H&P 06/22) RECENT PTCA (CARDIOLOGY NOTE 06/04- ) TREATMENT: IV VANCOMYCIN (ER) IV FLUIDS (ER) IV ROCEPHIN (ER) BLOOD, URINE AND STOOL CULTURES 06/03 CRITICAL CARE MONITORING (This form is maintained as a part of the permanent medical record) 2014 [employer] All Rights Reserved [email or web address] [email or web address] Office: [phone] [facility]
--- NOTE | 2019-06-05 16:27 | EKG ---
Test Reason : A-FIB Blood Pressure : / mmHG Vent. Rate : 085 BPM Atrial Rate : 468 BPM P-R Int : 000 ms QRS Dur : 110 ms QT Int : 364 ms P-R-T Axes : 000 035 125 degrees QTc Int : 433 ms A Fib PVC's Abnormal ECG When compared with ECG of 03-JUN-2019 19:01, Current undetermined rhythm precludes rhythm comparison, needs review Minimal criteria for Anterior infarct are no longer Present ST less depressed in Lateral leads T wave inversion less evident in Anterolateral leads Confirmed by DR. Yolanda CESAR (3) on 06/05/2019 4:27:22 PM Referred By: EDUARDO Confirmed By:DR. Yolanda CESAR
--- NOTE | 2019-06-05 17:27 | PRG ---
DATE OF SERVICE: 06/05/2019 REASON FOR CONSULTATION: Possible melena/GI bleeding. SUBJECTIVE: The patient did well overnight with no acute events or problems. However, she did have a repeat EKG, this now showing possible atrial fibrillation. Otherwise, she denies any nausea, vomiting, fevers, chills, hematemesis, melena, hematochezia, or abdominal pain. OBJECTIVE: VITAL SIGNS: Temperature 98, pulse 68, blood pressure 153/79, respiratory rate 20, and saturating 98% on room air. GENERAL: The patient was lying in bed, in no acute distress. Alert and oriented x4. Cooperative to interview. CARDIOVASCULAR: Regular rate and rhythm. High-pitched 3/6 systolic murmur best heard at the left upper sternal border. No discernible rubs. RESPIRATORY: Clear to auscultation bilaterally, but with poor inspiratory effort. ABDOMEN: Normoactive bowel sounds. Soft, nontender, and nondistended. EXTREMITIES: No cyanosis, clubbing, or edema. LABORATORY DATA: CBC with a white blood cell count of 19.9, hemoglobin 8.9, hematocrit 26.1, and platelets 100. Chemistry with a sodium of 134, potassium 4.1, chloride 94, CO2 of 19, BUN 56, creatinine 2.42, glucose 73, AST 2312, ALT 2368, alkaline phosphatase 66, and total bilirubin 2.4. IMAGING DATA: No current GI imaging is available for review. ASSESSMENT AND PLAN: The patient is an 88-year-old female with past medical history of hypertension, chronic anemia, severe aortic stenosis, and coronary artery disease, status post stent placement 1 month ago (was on anticoagulation), presenting with a [id number] myocardial infarction and anemia with a darker-colored stool the day prior to admission concerning for the presence of gastrointestinal bleeding along with elevated LFTs. Possible melena/gastrointestinal bleeding: The patient had initially presented to the hospital having had 1 dark black liquid stool the night prior to admission that was concerning for the presence of melena and when coupled with a history of anemia, also concerning for upper gastrointestinal bleed. However, during this admission, she has not had any further episodes of melena. The patient has not had any bowel movements and her H and H have been relatively stable during the same time, making the likelihood of any gastrointestinal bleeding less so. At this time, it is unclear if this episode of darker-colored stools was secondary to gastrointestinal bleeding versus administration of iron supplementation as an outpatient or eating of darker-colored foods (the patient was eating pickled beets prior to admission). However, with her [id number] myocardial infarction, the patient does need to be on anticoagulation, especially with recent stent placement and possible in-stent thrombosis. Given the fact that her H and H have been relatively stable and she has had no further episodes of gastrointestinal bleeding, restarting her anticoagulation and monitoring the patient for any additional episodes of bleeding would be prudent to prevent any further cardiac damage. If the patient then exhibits gastrointestinal bleeding, endoscopic management would then be indicated. Recommendations: 1. We would continue to trend the patient's H and H and transfuse as necessary to maintain an H and H of 7/. 2. Continue to monitor clinically for signs of active GI bleeding. 3. We would defer to the Cardiology Service for restarting anticoagulation, but from a GI standpoint, it is not unreasonable to restart her anticoagulation and monitor for any further episodes of bleeding with careful monitoring. If the patient does have repeat bleed, then EGD and colonoscopy would be indicated at that time. 4. Given her higher risk of ericka-procedural complications in light of a recent NSTEMI, we will hold on any endoscopic management at this time. Elevated LFTs: The patient initially presented with a modest elevation in her LFTs in primarily hepatocellular pattern, but over the last 24 hours, has had a significant transaminitis with both her AST and ALT over 2000. At this time, the most likely etiology would be hypertension associated with her myocardial infarction, then in turn create a hypoxia to the liver parenchyma and resulted in ischemic change, medication could also include medication-induced lactic acidosis or chronic underlying liver disease (less likely). Recommendations: 1. We would continue to trend her LFTs as part of monitoring for further hepatic damage. 2. We would attempt to optimize her cardiac status. 3. Avoid any potential hepatotoxins. We will continue to follow. Please call with any questions. Job ID: [id number]
--- NOTE | 2019-06-05 17:54 | CON ---
DATE OF CONSULTATION: 06/05/2019 CONSULTING PHYSICIAN: Juan Ambrosio MD REASON FOR CONSULTATION: Acute kidney injury. REASON FOR ADMISSION: Weakness, nausea, and vomiting. HISTORY OF PRESENT ILLNESS: An 88-year-old female with history of hypertension, coronary artery disease, came to the hospital with above complaints now, and is being admitted for a few days, was found to have elevated creatinine. Nephrology consulted. The patient also was found to have lby-XB-ffsjwxhpm WI as well as acute GI bleed. PAST MEDICAL HISTORY: Positive for hypertension, coronary artery disease, aortic stenosis. PAST SURGICAL HISTORY: Recent coronary stents, cardiac cath. HOME MEDICATIONS: Reviewed. ALLERGIES: NO KNOWN DRUG ALLERGIES. SOCIAL HISTORY: Former smoker. No alcohol or illicit drug abuse. FAMILY HISTORY: No history of kidney disease. REVIEW OF SYSTEMS: CONSTITUTIONAL: Negative for weight loss or gain, ability to conduct usual activities. SKIN: Negative for rash, itching. EYES: Negative for double vision, pain. ENT/MOUTH: Negative for nose bleeding, neck stiffness, pain, tenderness. CARDIOVASCULAR: Negative for palpitations, dyspnea on exertion, orthopnea. RESPIRATORY: Negative for shortness of breath, wheezing, cough, hemoptysis, fever or night sweats. GASTROINTESTINAL: Negative for poor appetite, abdominal pain, heartburn, nausea, vomiting, constipation, or diarrhea. GENITOURINARY: Negative for urgency, frequency, dysuria, nocturia. MUSCULOSKELETAL: Negative for pain, swelling. NEUROLOGIC/PSYCHIATRIC: Negative for anxiety, depression. ALLERGY/IMMUNOLOGIC: Negative for skin rash, bleeding tendency. PHYSICAL EXAMINATION: GENERAL: This is an elderly female, in no apparent distress. VITAL SIGNS: Temperature 98.0, pulse 68, respiratory rate 18, blood pressure 153/79. HEENT: Atraumatic, normocephalic. Oral mucosa moist. NECK: Supple. CV: S1 and S2. Rate and rhythm regular. RESPIRATORY: Clear. GASTROINTESTINAL: Abdomen is soft. MUSCULOSKELETAL: 1+ edema. DERMATOLOGIC: No skin rash. NEUROLOGICAL: Alert and awake. PSYCHIATRIC: Mood and affect are normal. LABORATORY DATA: Hemoglobin is 8.9. Potassium 4.1, BUN is 56, and creatinine is 2.4. ASSESSMENT AND PLAN: 1. Acute kidney injury, most likely secondary to cardiorenal syndrome. Avoid nephrotoxins. We will follow. 2. Acidosis. 3. Hyponatremia. 4. Azotemia. 5. Elevated liver enzymes. 6. And-TO-teszclbwf myocardial infarction. 7. Anemia . Prognosis guarded on elderly patient with multiple comorbidities. No acute indication for dialysis. Plan is to monitor renal function. Avoid nephrotoxins. We will continue to follow. Thank you for the consult. Job ID: [id number]
[2019-06-05] MEDS: Melatonin 3 MG TAB PO SCH (19:55)
[2019-06-05] MEDS ORDERED: Melatonin 3 MG TAB PO SCH (21:00)
[2019-06-06] MEDS: Clopidogrel Bisulfate 75 MG TAB PO SCH (09:45)
[2019-06-06 09:48] LABS: #Lymphocytes 0.7 thou/uL (1.20-3.40); #Monocytes 0.7 thou/uL (0.11-0.59); #Neutrophils 10.2 thou/uL (1.40-6.50); %Basophils 0.1 % (0.0-1.0); %Eosinophils 0.2 % (0.0-10.0); %Lymphocytes 5.8 % (21.0-51.0); %Monocytes 5.6 % (0.0-10.0); %Neutrophils 88.3 % (42.0-75.0); Hemoglobin 9.4 g/dL (12.0-16.0); Large Platelets SLIGHT; MDiff Complete? YES; Mean Corpuscular HGB CONC 32.7 g/dL (32.0-36.0); Mean Corpuscular Hemoglobin 27.8 pg (27.0-31.0); Mean Corpuscular Volume 84.9 fL (78.0-98.0); Mean Platelet Volume 11.5 fL (7.4-10.4); Platelet Count 67 thou/uL (130-400); Platelet Morphology Comment Appears Decreased; Poikilocytosis SLIGHT = 6-15 cells (100X) (0-5/hpf); Polychromasia SLIGHT = 2-3 cells (100X) (0-2/hpf); RBC Distribution Width 16.5 % (11.5-14.5); Red Blood Cell (RBC) Count 3.38 mill/uL (4.20-5.40); White Blood Cell (WBC) Count 11.6 thou/uL (4.8-10.8)
--- NOTE | 2019-06-06 09:59 | PRG ---
DATE OF SERVICE: 06/06/2019 SERVICE: Pulmonary Medicine. INTERVAL HISTORY: The patient is doing okay from respiratory standpoint. She is on room air. Otherwise, there has been no interval change to her condition. Overnight, she had a bradyarrhythmia. As such, her amiodarone was discontinued. PHYSICAL EXAMINATION: VITAL SIGNS: Afebrile. Pulse 60, blood pressure 153/76, respirations 15, saturation 98%, on 2 L nasal cannula. GENERAL: The patient is awake and alert, in no apparent distress. LUNGS: Very poor air entry. There is a prolonged expiratory phase. Rhonchi are present, but she cannot clear them with cough. HEART: Normal rate, regular. ABDOMEN: Soft, nontender, nondistended. Bowel sounds are positive. MUSCULOSKELETAL: No cyanosis or clubbing. There is no pitting in the bilateral lower extremities. NEUROLOGIC: Grossly nonfocal. LABORATORY DATA: WBC 19.9, hemoglobin 8.9, platelets 100,000. Creatinine 2.42 and roughly stable, BUN 56 and also stable. Anion gap is increasing to 25 and bicarb is reduced. Chloride 94. Basic metabolic profile is otherwise unremarkable. AST and ALT have significantly trended upwards. Alkaline phosphatase remains unremarkable. Troponin has peaked at 105 and is now downtrending to 57. Blood cultures x2, urine culture, and stool culture are all unremarkable to date. 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 There is a restrictive filling pattern. Kkqvbool-cp-eejuaa mitral regurgitation is present. Severe aortic stenosis is noted. ASSESSMENT: 1. Acute hypoxic respiratory failure. 2. Large myocardial infarction. 3. Ydqpu-ff-zybpycw systolic, diastolic, and valvular heart failure. 4. Aortic stenosis. 5. Anemia. 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 We will continue to try to keep her close to euvolemic and keep her blood pressures under good control. The shock liver is a very significant concern, but likely secondary to passive congestion, given the heart findings on echocardiogram. Pulmonary/Critical Care will continue to follow, but at this point, she should stay in a closely monitored environment unless we transition over to comfort care. Job ID: [id number]
[2019-06-06 15:12] LABS: Anion Gap 18 mmol/L (10-20); BUN (Urea Nitrogen) 70 mg/dL (9.8-20.1); Calc. Creatinine Clearance 15 mL/min (70-130); Calcium 7.7 mg/dL (7.8-10.44); Carbon Dioxide 25 mmol/L (23-31); Chloride 93 mmol/L (98-107); Estimated GFR-MDRD 24; Glucose 95 mg/dL (83-110); Potassium 3.8 mmol/L (3.5-5.1); Sodium 132 mmol/L (136-145)
--- NOTE | 2019-06-06 17:10 | PRG ---
DATE OF SERVICE: 06/06/2019 REASON FOR CONSULTATION: Possible GI bleeding, abnormal LFTs. SUBJECTIVE: Today, the patient has been more alert and interactive when compared to prior examinations, both per nursing staff and per the patient's family. However, she has been refusing to eat significant portions of her food trays saying that she does have a decreased appetite or does not like the taste of Ensure. Currently perseverating on "I want to go home. Please let me go home." Per patient and per nursing staff, she has not had any further episodes of GI bleeding with no evidence of hematemesis, melena, or hematochezia despite restarting anticoagulation on this patient. Otherwise, she denies any nausea, vomiting, fevers, chills, or abdominal pain. OBJECTIVE: VITAL SIGNS: Temperature 98, pulse 63, blood pressure 121/69, respiratory rate 17, saturating 99% on 2 L nasal cannula. GENERAL: The patient was lying in bed, in no acute distress. Alert and oriented x3, marginally cooperative to interview. CARDIOVASCULAR: Regular rate and rhythm with a high-pitched 3/6 systolic murmur best heard at the left upper sternal border. No discernible rubs. RESPIRATORY: Clear to auscultation bilaterally, but with poor inspiratory effort. ABDOMEN: Normoactive bowel sounds. Soft, nontender, nondistended. EXTREMITIES: No cyanosis, clubbing, or edema. LABORATORY DATA: CBC with a white blood cell count of 11.6, hemoglobin 9.4, hematocrit 28.7, platelets 67. IMAGING DATA: No current GI imaging is available for review. ASSESSMENT AND PLAN: The patient is an 88-year-old female with past medical history of hypertension, chronic anemia, severe aortic stenosis and coronary artery disease status post stent placement one month ago (with recommendations for three-vessel CABG) presenting with non-ST elevation myocardial infarction and a black stool prior to admission concerning the presence of GI bleeding, now with elevated LFTs on labs. Possible GI bleeding. The patient initially presented to the hospital having had one dark black liquid stool the night prior to admission, in addition to significant anemia noted on initial labs. However, during the course of this hospitalization, she has not had any significant derangement in her H and H nor has she exhibited any clinical evidence of active GI bleeding. In light of her NSTEMI, the patient was restarted on anticoagulation just in the form of clopidogrel with no episodes of GI bleeding thus far. At this time, it is unclear if this black liquid bowel movement was actually gastrointestinal bleeding to begin with, but given her tenuous cardiac status and DNR/DNI wishes, endoscopic management is not indicated at this time. RECOMMENDATIONS: 1. We would continue to trend the patient's H and H and transfuse as necessary to maintain an H and H of 7/21. 2. Continue to monitor clinically for signs of active GI bleeding. 3. Agree with restarting the patient on anticoagulation and monitoring for any signs of GI bleeding. If she does have a significant decrease in her H and H or clinical evidence of GI bleeding, I would then reconsider endoscopic management at that time. Elevated LFTs. The patient initially presented with a modest elevation in her LFTs, in primarily a hepatocellular pattern, but on hospital day 2 had a significant increase in her transaminitis with both her AST and ALT over 2000. At this time, the most likely etiology would be hypotension associated with her myocardial infarction resulting in hypoxia to the liver parenchyma with ischemic injury at that time. Differential could also include medication-induced liver injury, but less likely given her current regimen. RECOMMENDATIONS: 1. We would continue to trend her LFTs daily to monitor for further hepatic damage. 2. Continue to optimize her cardiac status. 3. Avoid any potential hepatotoxins. We will continue to follow. Please call with any questions. Job ID: [id number]
--- NOTE | 2019-06-06 19:32 | PRG ---
DATE OF SERVICE: HISTORY OF PRESENT ILLNESS: The patient remains in step-down given the level of shocked liver going on and GI bleed on anticoagulants for stent placement approximately a month ago. Anticoagulants have been stopped per GI recommendations following GI bleed triggering NSTEMI. Patient is currently recovering, not fully aware that she is in the ICU and simply stating she wants to go home. Temperature of 97.9, oxygen saturation 98% on 2 L nasal cannula, and blood pressure 137/64. Patient has been transfused 2 units of PRBCs since admission. White blood cell of 11.6; hemoglobin of 9.4, up from 8.9 from yesterday; and platelet count of 67. Troponin yesterday remained grossly elevated, however, downtrending from 105 to yesterday of 57. Renal function is slightly improved to 1.9 creatinine this morning. Sodium remains marginally low at 132, potassium at 3.8. Clinical care and GI following. She is a DNAR on admit, guarded prognosis by Critical Care and GI services regarding acute on chronic heart failure and liver shock likely secondary due to NSTEMI and secondary worsening of heart failure. Given patient's thrombocytopenia, continue to hold other anticoagulations regarding prior GI bleed, patient is started on Plavix today by Dr. Dickey. PHYSICAL EXAMINATION: GENERAL: Patient is alert but not fully oriented. No acute distress. HEENT: Head is normocephalic and atraumatic. Nasal cannula in place. NECK: Supple, nontender. Extraocular movements are intact. Sclerae are white. HEART: Systolic murmur is noted, but otherwise regular rate and rhythm. ABDOMEN: Soft, nontender. Positive bowel sounds throughout. EXTREMITIES: Lower extremities without cyanosis or edema. NEUROLOGIC: Patient is alert and oriented x1 to 2. No focal deficits. Speech is normal. ASSESSMENT/PLAN: Status post gastrointestinal bleed, gxs-PQ-lzmdrucvw myocardial infarction, liver shock, acute on chronic systolic heart failure, and resolving acute kidney injury. Patient is weaning off dopamine drips in the ICU. Once off, will likely be transitioned towards the floor status, however, if does not recover regarding liver enzymes, prognosis remains guarded and may need comfort care. Palliative Care is attempting to follow up with next of kin, who did agree with a DNI, DNR decision. Patient continues to have some element of metabolic encephalopathy and possible dementia, although difficult to tell in the acute setting. Continuing Protonix 40 mg b.i.d. p.o. at this point in time regarding GI. Patient remains on the amiodarone drip following gvw-FL-dqnjelnsq myocardial infarction. I believe she is off dopamine today. Greater than 30 min of critical care time with more than 50 % face to face performed Job ID: [id number] MTDD
[2019-06-06] MEDS: hydrALAZINE 25 MG TAB PO SCH (20:10)
[2019-06-06] MEDS: Melatonin 3 MG TAB PO SCH (20:10)
[2019-06-07 07:15] LABS: Anion Gap 17 mmol/L (10-20); BUN (Urea Nitrogen) 63 mg/dL (9.8-20.1); Calc. Creatinine Clearance 19 mL/min (70-130); Calcium 7.6 mg/dL (7.8-10.44); Carbon Dioxide 24 mmol/L (23-31); Chloride 95 mmol/L (98-107); Estimated GFR-MDRD 31; Glucose 88 mg/dL (83-110); Potassium 3.6 mmol/L (3.5-5.1); Sodium 132 mmol/L (136-145)
[2019-06-07 07:16] LABS: ALT (SGPT) 2219 U/L (8-55); AST (SGOT) 902 U/L (5-34); Alkaline Phosphatase 89 U/L (40-110); Bilirubin, Direct 0.9 mg/dL (0.1-0.3); Bilirubin, Total 1.9 mg/dL (0.2-1.2); Protein, Total 5.6 g/dL (6.0-8.3)
[2019-06-07 07:26] LABS: #Lymphocytes 0.7 thou/uL (1.20-3.40); %Basophils 0.1 % (0.0-1.0); %Eosinophils 0.3 % (0.0-10.0); %Lymphocytes 6.9 % (21.0-51.0); %Monocytes 9.2 % (0.0-10.0); %Neutrophils 83.6 % (42.0-75.0); Anisocytosis SLIGHT = 6-15 cells (100X) (0-5/hpf); Hemoglobin 9.6 g/dL (12.0-16.0); MDiff Complete? YES; Mean Corpuscular HGB CONC 31.9 g/dL (32.0-36.0); Mean Corpuscular Hemoglobin 27.3 pg (27.0-31.0); Mean Corpuscular Volume 85.4 fL (78.0-98.0); Mean Platelet Volume 11.9 fL (7.4-10.4); Platelet Count 76 thou/uL (130-400); Platelet Morphology Comment Appears Decreased; Poikilocytosis SLIGHT = 6-15 cells (100X) (0-5/hpf); RBC Distribution Width 16.5 % (11.5-14.5); Red Blood Cell (RBC) Count 3.51 mill/uL (4.20-5.40); White Blood Cell (WBC) Count 10.7 thou/uL (4.8-10.8)
--- NOTE | 2019-06-07 09:00 | RAD ---
Chest one view HISTORY: Dyspnea. COMPARISON: 06/03/2019. FINDINGS: Cardiac silhouette is magnified and enlarged. Pulmonary vasculature slightly engorged. Dens e bilateral lower lobe infiltrates now present with blunting of the costophrenic angles, right greater than left. Mediastinum is midline with aortic calcification. No evidence of pneumothorax. IMPRESSION: Interval development of bilateral pleural fluid and bibasilar infiltrates, right greater than left. Consider multifocal pneumonitis. Cardiomegaly, stable. Atherosclerosis.
[2019-06-07] MEDS: Clopidogrel Bisulfate 75 MG TAB PO SCH (09:42)
[2019-06-07] MEDS ORDERED: Furosemide 20 MG/2 ML VIAL SLOW IVP SCH (09:45)
[2019-06-07] MEDS ORDERED: Morphine 2 MG/ML SYRINGE SLOW IVP SCH (10:15)
[2019-06-07 10:18] LABS: Base Excess (BEa) 3.2 mEq/L (-2.0 to +3.0); Calcium, Ionized 1.03 mmol/L (1.12-1.30); Carboxyhemoglobin (COHb) 0.5 gm% (0.0-3.0); Hemoglobin (Hb) 9.9 g/dL (12.0-16.0); O2 Tension (PaO2) 104.4 mmHg (> 60.0); Potassium - ABG Lab 3.29 mmol/L (3.70-5.30); pH, Arterial 7.51 (7.35-7.45)
[2019-06-07] MEDS: hydrALAZINE 25 MG TAB PO SCH ×2 (10:20→21:20)
[2019-06-07 10:28] LABS: Puncture Site LB
[2019-06-07] MEDS ORDERED: Sodium Chloride 0.9% 10 ML ONE (10:31)
--- NOTE | 2019-06-07 13:14 | PRG ---
DATE OF SERVICE: 06/07/2019 REASON FOR CONSULTATION: Possible GI bleeding, abnormal LFTs. SUBJECTIVE: Since the patient was discharged from the ICU and placed in a telemetry bed, she has been doing much better and was actually eating at the time of the interview, stating that she was very very hungry and that she was going to "eat a lot." Currently, she denies any nausea, vomiting, fevers, chills, abdominal pain, or chest pain. OBJECTIVE: VITAL SIGNS: Temperature 97.7, pulse 55, blood pressure 159/72, respiratory rate 20, saturating 99% on 2 L nasal cannula. GENERAL: The patient was lying in bed, in no acute distress. Alert and oriented x3, more cooperative to interview when compared to previous. CARDIOVASCULAR: Regular rate and rhythm with a high-pitched 3/6 systolic murmur, best heard at the left upper sternal border. No discernible rubs. RESPIRATORY: Clear to auscultation bilaterally, but with poor inspiratory effort. ABDOMEN: Normoactive bowel sounds. Soft, nontender, nondistended. EXTREMITIES: No cyanosis, clubbing, or edema. LABORATORY DATA: CBC with a white blood cell count of 10.7, hemoglobin 9.6, hematocrit 30, platelets 76. Chemistry with a sodium of 132, potassium 3.6, chloride 95, CO2 of 24, BUN 63, creatinine 1.59, glucose 88, AST 902, ALT 2219, alkaline phosphatase 89, and total bilirubin 1.9. IMAGING DATA: No current GI imaging is available for review. ASSESSMENT AND PLAN: The patient is an 88-year-old female with past medical history of hypertension, chronic anemia, severe aortic stenosis, and coronary artery disease status post stent placement one month ago (with recommendations for 3-vessel coronary artery bypass grafting), presenting with non-ST elevation myocardial infarction and one black stool prior to admission concerning for the presence of gastrointestinal bleeding in addition to elevated LFTs. Possible gastrointestinal bleeding/melena: The patient initially presented to the hospital, having had one dark black liquid stool the night prior to admission as well as an anemia on initial labs. However, during the course of this hospitalization, she has not had any significant change in her hemoglobin and hematocrit, nor has she exhibited any clinical evidence of active gastrointestinal bleeding. She was subsequently restarted back on Plavix approximately 48 hours ago and while on anticoagulation, has still not had any further decreases in her hemoglobin and hematocrit, nor clinical evidence of gastrointestinal bleeding. Given her tenuous cardiac status and DNR/DNI wishes in addition to no derangement in her hemoglobin and hematocrit, endoscopic management is not indicated at this time. Recommendations: 1. We would continue to trend the patient's hemoglobin and hematocrit and transfuse as necessary to maintain hemoglobin and hematocrit of 7/21. 2. Continue to monitor clinically for signs of active gastrointestinal bleeding in light of anticoagulation. 3. If the patient does have a significant decrease in her hemoglobin and hematocrit or clinical evidence of gastrointestinal bleeding, I would reconsider endoscopic management at that time if the patient is willing. Elevated LFTs: The patient initially presented with a modest elevation in her LFTs, but on hospital day 2, had a significant increase in her transaminases with both her AST and ALT over 1999. Subsequent monitoring of these labs showed a significant decrease in her AST with downtrending of both ALT and total bilirubin at this time. At this time, the most likely etiology would be hypertension associated with her myocardial infarction resulting in hypoxia to the liver parenchyma with ischemic injury following hepatocellular type pattern. Given downtrending of her LFTs, I would continue this to do so with improvement in her cardiac status. Recommendations: 1. We would continue to trend her LFTs daily for monitoring of further hepatic damage. 2. Continue to optimize her cardiac status. 3. Avoid any potential hepatotoxins. Given that the patient is not a good candidate for endoscopic evaluation, lack of evidence of gastrointestinal bleeding (or bleeding of any sort for that matter), and improvement in her LFTs, we will sign off at this time. Please call with any questions. Job ID: [id number]
--- NOTE | 2019-06-07 13:56 | PDOC.HOSPP ---
- Subjective Encounter Date: 06/07/19 Encounter Time: 09:00 Subjective: pt up in bed feels anxious. - Objective Vital Signs & Weight: Vital Signs (12 hours) Temp Pulse Resp BP Pulse Ox 06/07/19 12:00 98.5 F 57 L 14 126/61 97 06/07/19 10:20 55 L 06/07/19 08:00 97.7 F 55 L 20 159/72 H 99 06/07/19 03:30 97.7 F 52 L 20 128/59 L 98 06/07/19 02:30 52 L 135/60 Weight Admit Weight 105 lb Weight 105 lb 9.623 oz Most Recent Monitor Data Heart Rate from ECG 65 NIBP 150/79 NIBP BP-Mean 102 Respiration from ECG 21 SpO2 98 I&O: 06/06/19 06/07/19 06/08/19 06:59 06:59 06:59 Intake Total 845 525 Output Total 625 1050 80 Balance 220 -525 -80 Result Diagrams: 06/07/19 06:31 06/07/19 06:31 Hospitalist ROS - Review of Systems Respiratory: reports: shortness of breath Cardiovascular: denies: chest pain, palpitations, orthopnea, paroxysmal noc. dyspnea, edema, light headedness, other Gastrointestinal: denies: nausea, vomiting, abdominal pain, diarrhea, constipation, melena, hematochezia, other - Medication Medications: Active Medications Generic Name Dose Route Start Last Admin Trade Name Freq PRN Reason Stop Dose Admin Acetaminophen 650 mg 06/03/19 17:46 06/05/19 04:32 Tylenol PO 650 mg Q4H PRN Administration Headache/Fever/Mild Pain (1-3) Clopidogrel Bisulfate 75 mg 06/06/19 09:00 06/07/19 09:42 Plavix PO 75 mg DAILY SANJU Administration Amiodarone HCl 450 mg/ 259 mls @ 0 mls/hr 06/04/19 17:00 06/05/19 17:41 Miscellaneous Medication 1 IVPB 259 mls each/ Dextrose/Water INF SANJU Administration Protocol As Directed Melatonin 3 mg 06/05/19 21:00 06/06/19 20:10 Melatonin PO 3 mg HS SANJU Administration Pantoprazole Sodium 40 mg 06/05/19 21:00 06/07/19 09:44 Protonix PO 40 mg BID SANJU Administration - Exam Neck: negative: supple, symmetric, no JVD, no thyromegaly, no lymphadenopathy, no carotid bruit, JVD Heart: negative: RRR, no murmur, no gallops, no rubs, normal peripheral pulses, irregular, diminshed peripheral pulses, murmur present, II/IV, III/IV Respiratory: negative: CTAB, no wheezes, no rales, no ronchi, normal chest expansion, no tachypnea, normal percussion, rales, rhonchi, tachypneic, wheezes Hosp A/P (1) SOB (shortness of breath) Code(s): R06.02 - SHORTNESS OF BREATH Status: Acute (2) GI bleed Code(s): K92.2 - GASTROINTESTINAL HEMORRHAGE, UNSPECIFIED Status: Acute (3) NSTEMI (non-ST elevated myocardial infarction) Code(s): I21.4 - NON-ST ELEVATION (NSTEMI) MYOCARDIAL INFARCTION Status: Acute (4) CAD (coronary artery disease) Code(s): I25.10 - ATHSCL HEART DISEASE OF [place] CORONARY ARTERY W/O ANG PCTRS Status: Chronic - Plan pt very anxious and feels that she cannot breath. pt's oxygen sat is 96% cxr indicates some right effusion. will give her a small dose of lasix. will also get abg. updated pt's family. will also order some morphine and xanax.
--- NOTE | 2019-06-07 16:36 | PRG ---
DATE OF SERVICE: 06/07/2019 SUBJECTIVE: Patient was seen and examined at bedside and overnight events noted. Patient denies any shortness of breath or chest pain or palpitation. No history of nausea or vomiting or diarrhea or fever or chills or cramps. OBJECTIVE: GENERAL: This is an elderly female, in no apparent distress. VITAL SIGNS: Temperature 98.5. Heart rate 57. Respiratory rate 14. Blood pressure 126/61. HEENT: Atraumatic, normocephalic. Oral mucosa is moist. NECK: Supple. CARDIOVASCULAR: S1, S2 heard. Rate and rhythm regular. RESPIRATORY: Clear to auscultation. GASTROINTESTINAL: Abdomen is soft. MUSCULOSKELETAL: No tenderness. No edema. DERMATOLOGIC: No skin rash. NEUROLOGIC: Alert and awake and oriented x3. No focal neurologic deficits. Moving all the extremities. PSYCHIATRIC: Mood and affect normal. LABORATORY DATA: Potassium 3.6, BUN is 63, and creatinine is 1.5. ASSESSMENT AND PLAN: 1. Acute kidney injury, stable. 2. Cardiorenal syndrome. 3. Acidosis. 4. Azotemia. 5. Elevated liver enzymes. 6. Non-ST elevation myocardial infarction. 7. Anemia of chronic disease. Renal function is getting better. Job ID: [id number]
--- NOTE | 2019-06-07 23:47 | HP ---
SERVICE: Pulmonary Medicine. INTERVAL HISTORY: The patient is doing really well from a respiratory standpoint. Her abdominal discomfort has improved. She actually tolerated a little bit of p.o. She indicates that she is not having any difficulty breathing, chest discomfort , or shortness of breath. Otherwise, she looks very comfortable. PHYSICAL EXAMINATION: VITAL SIGNS: Afebrile, pulse 75, blood pressure 89/50, respirations 16, and saturation 98%, currently on room air. GENERAL: The patient is awake and alert, in no apparent distress. LUNGS: Decent air entry. No prolonged expiratory phase or wheezing is appreciated. HEART: Normal rate, regular. ABDOMEN: Soft, nontender, and nondistended. Bowel sounds are positive. MUSCULOSKELETAL: No cyanosis or clubbing. There is no pitting edema. ASSESSMENT: WBC 10.7, hemoglobin 9.6, platelets 76,000 and gently uptrending. PH 7.51, pCO2 33, pO2 104, while wearing 2 L nasal cannula. AST and ALT are gently downtrending. Direct bilirubin 0.9, total bilirubin 1.9. Creatinine 1.59. This is gently downtrending as well. Blood cultures x2, urine culture, and occult blood are negative to date. IMAGING: Chest x-ray demonstrates right-sided effusion is suspected. Infiltrate cannot be excluded. Cardiomegaly is noted. There is a smaller left-sided pleural effusion also noted. Cephalization and pulmonary vascular congestion are noted. ASSESSMENT: 1. Acute hypoxic respiratory failure. 2. Large myocardial infarction. 3. Ckwdc-hw-smmbift systolic, diastolic, and valvular heart failure. 4. Shock liver secondary to hepatic congestion. 5. Aortic stenosis. 6. Anemia. DISCUSSION AND PLAN: We will continue making efforts at diuresing the patient to euvolemia. This patient had a very large heart attack. The likelihood of a good long-term prognosis is dismal. Pulmonary will continue to follow, intermittently during this hospital stay. Please call with additional questions or concerns through time. Job ID: [id number] [facility]
[2019-06-08] MEDS: Melatonin 3 MG TAB PO SCH ×2 (00:33→21:09)
--- NOTE | 2019-06-08 08:01 | PRG ---
DATE OF SERVICE: 06/08/2019 SUBJECTIVE: The patient remains in the hospital. She has been moved to telemetry. She actually looks to be in better spirits and more oriented than what she was. OBJECTIVE: VITAL SIGNS: Temperature is 98.2, pulse 65, respirations 16, O2 saturation 96% on 2 L mask, blood pressure 154/65. HEENT: Unremarkable. NECK: No adenopathy or JVD. LUNGS: Clear to auscultation. CARDIAC: S1, S2, regular with a 3/6 systolic murmur. ABDOMEN: Soft, nontender. EXTREMITIES: No edema. ASSESSMENT: 1. Status post large myocardial infarction. 2. Status post acute hypoxic respiratory failure. 3. Aortic stenosis. PLAN: Largely supportive at this point. She is now off diuretic. She seems to be getting better. There is no further Pulmonary/Critical Care acute needs. We will sign off. Please recall if further assistance needed. Job ID: [id number]
[2019-06-08] MEDS ORDERED: Sodium Chloride 0.9% 10 ML ONE (08:36)
[2019-06-08] MEDS ORDERED: Atorvastatin Calcium 40 MG TAB PO SCH (09:00)
--- NOTE | 2019-06-08 09:28 | PRG ---
DATE OF SERVICE: 06/08/2019 Ms. Barboza is doing better. She has no current complaints of chest pain, pressure, shortness of breath. Her ambulation has been limited. In summary, Ms. Barboza recently presented with increased troponin. The troponin continued to elevate. She has no current symptoms. She recently underwent successful stent placement to the circumflex artery and PTCA only to the LAD with a previously completely occluded right coronary artery. This was performed at the [facility]. Ms. Barboza also has severe aortic stenosis diagnosed on echo several months ago. PHYSICAL EXAMINATION: GENERAL: The patient is a pleasant female who is in no acute distress. The patient appears their stated age. VITAL SIGNS: Blood pressure 128/70, pulse 72, temperature 97.6. NEUROLOGIC: The patient is alert and oriented x3 with no focal neurologic deficits. HEENT: Sclerae without icterus. Mouth has moist mucous membranes with normal pallor. NECK: No JVD. Carotid upstroke brisk. No bruits bilaterally. LUNGS: Crackles noted bilaterally. BACK: No scoliosis or kyphosis. CARDIAC: Regular rate and rhythm with normal S1 and S2. No S3 or S4 noted. No significant rubs, murmurs, thrills, or gallops noted throughout the precordium. PMI is not displaced. There is no parasternal heave. ABDOMEN: Soft, nontender, nondistended. No peritoneal signs present. No hepatosplenomegaly. No abnormal striae. EXTREMITIES: 2+ femoral and 2+ dorsalis pedis pulses. No cyanosis, clubbing, or edema. SKIN: No gross abnormalities. PERTINENT LABORATORY DATA: Hemoglobin 9.6. Creatinine 1.59, which is down from 2.42. Peak troponin 105. IMPRESSION: 1. Recent myocardial infarction. 2. Profound anemia, status post transfusion. 3. [id number] renal insufficiency. 4. Severe aortic stenosis. 5. Severe deconditioning. RECOMMENDATIONS: Certainly difficult on how to decide on proceeding with Ms. Barboza. Her infarct is now 6 days out from her initial admission on 06/03/2019. She has no current symptoms. At this point, would recommend continued supportive care. Her sister and two nieces were present during the discussion. They certainly agree. I did state that based on her comorbidities, I would recommend a medical approach and see if her conditioning improves. At that point, I may consider proceeding with TAVR, although with recent DE, occluded right coronary artery and likely occluded stent to the circumflex artery is now unlikely. There is no indication to proceed with a repeat angio given no current symptoms. If she did have an occluded stent to the circumflex artery, it is likely completed. I did discuss proceeding with placement from Ms. Barboza. She is adamant against rehab or skilled. We will need to get social Work involved about placement. She would like to go stay with her sister in [place], which appears reasonable. At this point would continue aspirin and Plavix as prescribed. GI feels she is too high risk to proceed with EGD or colonoscopy and I would agree. AST, ALT are trending down likely due to passive congestion. Job ID: [id number]
[2019-06-08] MEDS: Clopidogrel Bisulfate 75 MG TAB PO SCH (10:07)
[2019-06-08] MEDS: hydrALAZINE 25 MG TAB PO SCH ×2 (10:09→21:09)
[2019-06-08] MEDS: ALPRAZolam 0.25 MG TAB PO PRN (10:46)
--- NOTE | 2019-06-08 11:29 | PRG ---
DATE OF SERVICE: 06/06/2019 SUBJECTIVE: Patient was seen and examined at bedside and overnight events noted. Patient denies any shortness of breath or chest pain or palpitation. No history of nausea or vomiting or diarrhea or fever or chills or cramps. OBJECTIVE: GENERAL: This is an elderly female, in no apparent distress. VITAL SIGNS: Temperature 98.0. Heart rate 58. Respiratory rate 19. Blood pressure 147/72. HEENT: Atraumatic, normocephalic. Oral mucosa is moist NECK: Supple. CARDIOVASCULAR: S1, S2 heard. Rate and rhythm regular. RESPIRATORY: Clear to auscultation. GASTROINTESTINAL: Abdomen is soft. MUSCULOSKELETAL: No tenderness. No edema. DERMATOLOGIC: No skin rash. NEUROLOGIC: Alert and awake and oriented X3. No focal neurologic deficits. Moving all the extremities. PSYCHIATRIC: Mood and affect normal. LABORATORY DATA: No labs done today. ASSESSMENT AND PLAN: 1. Acute kidney injury. We will recheck labs. 2. Cardiorenal syndrome. 3. Hyponatremia. 4. Azotemia. 5. [id number] myocardial infarction. 6. Anemia of chronic disease. We will recheck labs. Job ID: [id number]
--- NOTE | 2019-06-08 16:54 | PRG ---
DATE OF SERVICE: 06/08/2019 SUBJECTIVE: Patient was seen and examined at bedside and overnight events noted. Patient denies any shortness of breath or chest pain or palpitation. No history of nausea or vomiting or diarrhea or fever or chills or cramps. OBJECTIVE: GENERAL: This is a well-built female, in no apparent distress. VITAL SIGNS: Temperature 97.7. Heart rate 90. Respiratory rate 18. Blood pressure 118/69. HEENT: Atraumatic, normocephalic. Oral mucosa is moist NECK: Supple. CARDIOVASCULAR: S1, S2 heard. Rate and rhythm regular. RESPIRATORY: Clear to auscultation. GASTROINTESTINAL: Abdomen is soft. MUSCULOSKELETAL: No tenderness. No edema. DERMATOLOGIC: No skin rash. NEUROLOGIC: Alert and awake and oriented X3. No focal neurologic deficits. Moving all the extremities. PSYCHIATRIC: Mood and affect normal. LABORATORY DATA: Potassium is 3.6, BUN is 63, and creatinine is 1.5. ASSESSMENT AND PLAN: 1. Acute kidney injury - stable. 2. Cardiorenal syndrome. 3. Acidosis. 4. Elevated liver enzymes. 5. Anemia of chronic disease. Monitor labs. Avoid nephrotoxins. We will follow. Job ID: [id number]
--- NOTE | 2019-06-08 17:15 | PDOC.HOSPP ---
- Subjective Encounter Date: 06/08/19 Encounter Time: 09:00 Subjective: pt up in bed sob again, pt on face mask - Objective Vital Signs & Weight: Vital Signs (12 hours) Temp Pulse Pulse Pulse Resp BP BP 06/08/19 13:46 107 H 121 H 118/71 06/08/19 12:00 97.7 F 98 18 06/08/19 10:09 115 H 136/80 06/08/19 08:00 97.6 F 72 18 BP BP Pulse Ox Pulse Ox Pulse Ox 06/08/19 13:46 110/58 L 100 100 06/08/19 12:00 118/69 100 06/08/19 10:09 06/08/19 08:00 128/70 96 Weight Admit Weight 105 lb Weight 105 lb 9.623 oz Most Recent Monitor Data Heart Rate from ECG 65 NIBP 150/79 NIBP BP-Mean 102 Respiration from ECG 21 SpO2 98 I&O: 06/07/19 06/08/19 06/09/19 06:59 06:59 06:59 Intake Total 525 620 100 Output Total 1050 830 600 Balance -525 -210 -500 Result Diagrams: 06/07/19 06:31 06/07/19 06:31 Hospitalist ROS - Review of Systems Respiratory: reports: shortness of breath Cardiovascular: denies: chest pain, palpitations, orthopnea, paroxysmal noc. dyspnea, edema, light headedness, other Gastrointestinal: denies: nausea, vomiting, abdominal pain, diarrhea, constipation, melena, hematochezia, other Genitourinary: denies: dysuria, frequency, incontinence, hematuria, retention, other - Medication Medications: Active Medications Generic Name Dose Route Start Last Admin Trade Name Freq PRN Reason Stop Dose Admin Acetaminophen 650 mg 06/03/19 17:46 06/05/19 04:32 Tylenol PO 650 mg Q4H PRN Administration Headache/Fever/Mild Pain (1-3) Alprazolam 0.25 mg 06/07/19 10:15 06/08/19 10:46 Xanax PO 0.25 mg TIDPRN PRN Administration Anxiety Clopidogrel Bisulfate 75 mg 06/06/19 09:00 06/08/19 10:07 Plavix PO 75 mg DAILY SANJU Administration Hydralazine HCl 50 mg 06/07/19 10:12 06/08/19 10:09 Apresoline PO 50 mg BID SANJU Administration Amiodarone HCl 450 mg/ 259 mls @ 0 mls/hr 06/04/19 17:00 06/05/19 17:41 Miscellaneous Medication 1 IVPB 259 mls each/ Dextrose/Water INF SANJU Administration Protocol As Directed Melatonin 3 mg 06/05/19 21:00 06/08/19 00:33 Melatonin PO Not Given HS SANJU Pantoprazole Sodium 40 mg 06/05/19 21:00 06/08/19 10:07 Protonix PO 40 mg BID SANJU Administration - Exam Heart: negative: RRR, no murmur, no gallops, no rubs, normal peripheral pulses, irregular, diminshed peripheral pulses, murmur present, II/IV, III/IV Respiratory: negative: CTAB, no wheezes, no rales, no ronchi, normal chest expansion, no tachypnea, normal percussion, rales, rhonchi, tachypneic, wheezes Gastrointestinal: negative: soft, non-tender, non-distended, normal bowel sounds , no palpable masses, no hepatomegaly, no splenomegaly, no bruit, no guarding, no rigidity, tender to palpation, distended, diminished bowl sounds, voluntary guarding Hosp A/P (1) SOB (shortness of breath) Code(s): R06.02 - SHORTNESS OF BREATH Status: Acute (2) GI bleed Code(s): K92.2 - GASTROINTESTINAL HEMORRHAGE, UNSPECIFIED Status: Acute (3) NSTEMI (non-ST elevated myocardial infarction) Code(s): I21.4 - NON-ST ELEVATION (NSTEMI) MYOCARDIAL INFARCTION Status: Acute (4) CAD (coronary artery disease) Code(s): I25.10 - ATHSCL HEART DISEASE OF [place] CORONARY ARTERY W/O ANG PCTRS Status: Chronic - Plan pt very anxious and feels that she cannot breath. pt's oxygen sat is 96% cxr indicates some right effusion. will give her a small dose of lasix. will also get abg. updated pt's family. will also order some morphine and xanax. 06/08 will give one dose of lasix. spoke with her sister who states that she will need SNF since her other sister is unable to take care of her. Need to medically optimize pt. pt also having tachy john and had a pause. will make cardiology aware.
[2019-06-09 05:16] LABS: Anion Gap 14 mmol/L (10-20); BUN (Urea Nitrogen) 34 mg/dL (9.8-20.1); Calc. Creatinine Clearance 34 mL/min (70-130); Calcium 7.7 mg/dL (7.8-10.44); Carbon Dioxide 29 mmol/L (23-31); Chloride 97 mmol/L (98-107); Estimated GFR-MDRD 62; Glucose 98 mg/dL (83-110); Potassium 3.6 mmol/L (3.5-5.1); Sodium 136 mmol/L (136-145)
[2019-06-09 05:46] LABS: #Eosinphils 0.1 thou/uL (0.0-0.7); #Neutrophils 4.6 thou/uL (1.40-6.50); %Basophils 0.6 % (0.0-1.0); %Eosinophils 1.8 % (0.0-10.0); %Lymphocytes 14.8 % (21.0-51.0); %Monocytes 14.3 % (0.0-10.0); %Neutrophils 68.5 % (42.0-75.0); Hemoglobin 10.1 g/dL (12.0-16.0); Mean Corpuscular HGB CONC 31.2 g/dL (32.0-36.0); Mean Corpuscular Hemoglobin 26.9 pg (27.0-31.0); Mean Corpuscular Volume 86.3 fL (78.0-98.0); Mean Platelet Volume 11.1 fL (7.4-10.4); Platelet Count 102 thou/uL (130-400); Platelet Morphology Comment Appears Decreased; RBC Distribution Width 16.2 % (11.5-14.5); Red Blood Cell (RBC) Count 3.75 mill/uL (4.20-5.40); White Blood Cell (WBC) Count 6.8 thou/uL (4.8-10.8)
[2019-06-09 07:02] LABS: ALT (SGPT) 1188 U/L (8-55); AST (SGOT) 250 U/L (5-34); Albumin 2.8 g/dL (3.4-4.8); Alkaline Phosphatase 82 U/L (40-110); Bilirubin, Direct 0.8 mg/dL (0.1-0.3); Bilirubin, Total 1.7 mg/dL (0.2-1.2); Protein, Total 5.5 g/dL (6.0-8.3)
[2019-06-09] MEDS: hydrALAZINE 25 MG TAB PO SCH ×2 (09:17→20:32)
[2019-06-09] MEDS: Clopidogrel Bisulfate 75 MG TAB PO SCH (09:17)
[2019-06-09] MEDS: ALPRAZolam 0.25 MG TAB PO PRN ×2 (10:15→18:50)
--- NOTE | 2019-06-09 12:54 | PRG ---
DATE OF SERVICE: 06/09/2019 SUBJECTIVE: Patient was seen and examined at bedside and overnight events noted. Patient denies any shortness of breath or chest pain or palpitation. No history of nausea or vomiting or diarrhea or fever or chills or cramps. OBJECTIVE: GENERAL: This is a well built female, in no apparent distress. VITAL SIGNS: Temperature 98.4. Heart rate 100. Respiratory rate 20. Blood pressure 93/51. HEENT: Atraumatic, normocephalic. Oral mucosa is moist NECK: Supple. CARDIOVASCULAR: S1, S2 heard. Rate and rhythm regular. RESPIRATORY: Clear to auscultation. GASTROINTESTINAL: Abdomen is soft. MUSCULOSKELETAL: No tenderness. No edema. DERMATOLOGIC: No skin rash. NEUROLOGIC: Alert and awake and oriented X3. No focal neurologic deficits. Moving all the extremities. PSYCHIATRIC: Mood and affect normal. LABORATORY DATA: Potassium 3.6, BUN is 34, creatinine 0.8. ASSESSMENT AND PLAN: 1. Acute kidney injury, stable. Creatinine is much better. 2. Hyponatremia, better. 3. Hypochloremia. 4. Acidosis. 5. Anemia of chronic disease. 6. . Labs are stable. I will sign off. Please call back with any questions. Job ID: [id number]
--- NOTE | 2019-06-09 15:17 | PDOC.HOSPP ---
- Subjective Encounter Date: 06/09/19 Encounter Time: 09:00 Subjective: pt up in bed got some xanax. - Objective Vital Signs & Weight: Vital Signs (12 hours) Temp Pulse Pulse Pulse Resp BP BP 06/09/19 14:00 109 H 06/09/19 13:10 128 H 121 H 108/59 L 06/09/19 11:02 98.4 F 100 20 06/09/19 09:17 91 124/70 06/09/19 08:00 97.5 F L 91 18 06/09/19 03:37 97.8 F 87 18 BP BP Pulse Ox Pulse Ox Pulse Ox 06/09/19 14:00 163/59 H 06/09/19 13:10 99/59 L 100 100 06/09/19 11:02 93/51 L 96 06/09/19 09:17 06/09/19 08:00 124/70 100 06/09/19 03:37 120/89 100 Weight Admit Weight 105 lb Weight 105 lb 9.623 oz Most Recent Monitor Data Heart Rate from ECG 65 NIBP 150/79 NIBP BP-Mean 102 Respiration from ECG 21 SpO2 98 I&O: 06/08/19 06/09/19 06/10/19 06:59 06:59 06:59 Intake Total 620 350 Output Total 830 950 Balance -210 -600 Result Diagrams: 06/09/19 04:21 06/09/19 04:21 Hospitalist ROS - Review of Systems Respiratory: reports: shortness of breath Cardiovascular: denies: chest pain, palpitations, orthopnea, paroxysmal noc. dyspnea, edema, light headedness, other Gastrointestinal: denies: nausea, vomiting, abdominal pain, diarrhea, constipation, melena, hematochezia, other Genitourinary: denies: dysuria, frequency, incontinence, hematuria, retention, other - Medication Medications: Active Medications Generic Name Dose Route Start Last Admin Trade Name Freq PRN Reason Stop Dose Admin Acetaminophen 650 mg 06/03/19 17:46 06/05/19 04:32 Tylenol PO 650 mg Q4H PRN Administration Headache/Fever/Mild Pain (1-3) Alprazolam 0.25 mg 06/07/19 10:15 06/09/19 10:15 Xanax PO 0.25 mg TIDPRN PRN Administration Anxiety Clopidogrel Bisulfate 75 mg 06/06/19 09:00 06/09/19 09:17 Plavix PO 75 mg DAILY SANJU Administration Hydralazine HCl 50 mg 06/07/19 10:12 06/09/19 09:17 Apresoline PO 50 mg BID SANJU Administration Amiodarone HCl 450 mg/ 259 mls @ 0 mls/hr 06/04/19 17:00 06/05/19 17:41 Miscellaneous Medication 1 IVPB 259 mls each/ Dextrose/Water INF SANJU Administration Protocol As Directed Melatonin 3 mg 06/05/19 21:00 06/08/19 21:09 Melatonin PO 3 mg HS SANJU Administration Pantoprazole Sodium 40 mg 06/05/19 21:00 06/09/19 09:17 Protonix PO 40 mg BID SANJU Administration - Exam Heart: negative: RRR, no murmur, no gallops, no rubs, normal peripheral pulses, irregular, diminshed peripheral pulses, murmur present, II/IV, III/IV Respiratory: negative: CTAB, no wheezes, no rales, no ronchi, normal chest expansion, no tachypnea, normal percussion, rales, rhonchi, tachypneic, wheezes Gastrointestinal: negative: soft, non-tender, non-distended, normal bowel sounds , no palpable masses, no hepatomegaly, no splenomegaly, no bruit, no guarding, no rigidity, tender to palpation, distended, diminished bowl sounds, voluntary guarding Extremities: negative: no cyanosis, no clubbing, no edema, 1+ LE edema, 2+ LE edema, clubbing Hosp A/P (1) SOB (shortness of breath) Code(s): R06.02 - SHORTNESS OF BREATH Status: Acute (2) GI bleed Code(s): K92.2 - GASTROINTESTINAL HEMORRHAGE, UNSPECIFIED Status: Acute (3) NSTEMI (non-ST elevated myocardial infarction) Code(s): I21.4 - NON-ST ELEVATION (NSTEMI) MYOCARDIAL INFARCTION Status: Acute (4) CAD (coronary artery disease) Code(s): I25.10 - ATHSCL HEART DISEASE OF [place] CORONARY ARTERY W/O ANG PCTRS Status: Chronic - Plan pt very anxious and feels that she cannot breath. pt's oxygen sat is 96% cxr indicates some right effusion. will give her a small dose of lasix. will also get abg. updated pt's family. will also order some morphine and xanax. 06/08 will give one dose of lasix. spoke with her sister who states that she will need SNF since her other sister is unable to take care of her. Need to medically optimize pt. pt also having tachy john and had a pause. will make cardiology aware. 06/09 pt received xanax feels well but is drowsy. case managment working on placement. pt did eat her dinner last night. She is not drinking much. will not give her lasix today. will order PT. she may be a candidate for snf vs inpatient hospice.
--- NOTE | 2019-06-09 18:54 | PRG ---
DATE OF SERVICE: 06/09/2019 SUBJECTIVE: Ms. Barboza appears to have regressed. She has had more difficulty with shortness of breath this afternoon. She is awake, but is somnolent. No current complaints of chest pain or pressure. OBJECTIVE: VITAL SIGNS: Blood pressure 127/60, pulse 109, and respirations 20. LUNGS: Crackles bilaterally. HEART: Irregularly irregular. ABDOMEN: Soft, nontender, and nondistended. EXTREMITIES: No edema. IMPRESSION: 1. Acute myocardial infarction. 2. Profound anemia with initial hemoglobin of 6, now 10.1 after transfusion. 3. Severe aortic stenosis. RECOMMENDATIONS: Ms. Barboza continues to decline clinically. The family has opted for inpatient hospice. They will seek a transfer to [place]. I am certainly agreeable given her comorbidities and unlikely to survive the most recent infarction. At this point, we will discontinue IV amiodarone. Continue Plavix. Hold aspirin due to recurrent anemia. Prognosis is poor. Otherwise, I have no further recommendations. Please re-consult if needed. Job ID: [id number]
[2019-06-09] MEDS: Melatonin 3 MG TAB PO SCH (20:32)
[2019-06-10] MEDS: Clopidogrel Bisulfate 75 MG TAB PO SCH (08:22)
[2019-06-10] MEDS: hydrALAZINE 25 MG TAB PO SCH ×2 (08:22→20:29)
[2019-06-10] MEDS ORDERED: Bisacodyl 5 MG TAB PO SCH (10:45)
[2019-06-10] MEDS ORDERED: Digoxin 0.5 MG/2 ML AMP SLOW IVP SCH (15:15)
--- NOTE | 2019-06-10 16:44 | PDOC.HOSPP ---
- Subjective Encounter Date: 06/10/19 Encounter Time: 10:30 Subjective: pt up in bed appears sleepy. pt's sister states that pt was more awake and eat her breakfast. - Objective Vital Signs & Weight: Vital Signs (12 hours) Temp Pulse Pulse Pulse Resp BP BP 06/10/19 16:00 63 06/10/19 15:38 91 06/10/19 14:19 125 H 139 H 111/62 06/10/19 10:57 97.9 F 106 H 18 06/10/19 08:22 73 125/65 06/10/19 08:00 97.7 F 73 20 BP Pulse Ox Pulse Ox 06/10/19 16:00 133/59 L 06/10/19 15:38 06/10/19 14:19 96 06/10/19 10:57 106/70 97 06/10/19 08:22 06/10/19 08:00 125/65 92 L Weight Admit Weight 105 lb 9.623 oz Weight 105 lb 9.623 oz Most Recent Monitor Data Heart Rate from ECG 65 NIBP 150/79 NIBP BP-Mean 102 Respiration from ECG 21 SpO2 98 I&O: 06/09/19 06/10/19 06/11/19 06:59 06:59 06:59 Intake Total 350 250 Output Total 950 300 Balance -600 -50 Result Diagrams: 06/09/19 04:21 06/09/19 04:21 Hospitalist ROS - Review of Systems Respiratory: denies: cough, dry, shortness of breath, hemoptysis, SOB with excertion, pleuritic pain, sputum, wheezing, other Cardiovascular: denies: chest pain, palpitations, orthopnea, paroxysmal noc. dyspnea, edema, light headedness, other Gastrointestinal: denies: nausea, vomiting, abdominal pain, diarrhea, constipation, melena, hematochezia, other - Medication Medications: Active Medications Generic Name Dose Route Start Last Admin Trade Name Freq PRN Reason Stop Dose Admin Acetaminophen 650 mg 06/03/19 17:46 06/05/19 04:32 Tylenol PO 650 mg Q4H PRN Administration Headache/Fever/Mild Pain (1-3) Alprazolam 0.25 mg 06/07/19 10:15 06/09/19 18:50 Xanax PO 0.25 mg TIDPRN PRN Administration Anxiety Clopidogrel Bisulfate 75 mg 06/06/19 09:00 06/10/19 08:22 Plavix PO 75 mg DAILY SANJU Administration Digoxin 0.25 mg 06/10/19 15:15 06/10/19 15:38 Lanoxin SLOW IVP 06/10/19 17:15 0.25 mg NOW SANJU Administration Hydralazine HCl 50 mg 06/07/19 10:12 06/10/19 08:22 Apresoline PO 50 mg BID SANJU Administration Melatonin 3 mg 06/05/19 21:00 06/09/19 20:32 Melatonin PO 3 mg HS SANJU Administration Pantoprazole Sodium 40 mg 06/05/19 21:00 06/10/19 08:22 Protonix PO 40 mg BID SANJU Administration - Exam Neck: negative: supple, symmetric, no JVD, no thyromegaly, no lymphadenopathy, no carotid bruit, JVD Heart: negative: RRR, no murmur, no gallops, no rubs, normal peripheral pulses, irregular, diminshed peripheral pulses, murmur present, II/IV, III/IV Respiratory: negative: CTAB, no wheezes, no rales, no ronchi, normal chest expansion, no tachypnea, normal percussion, rales, rhonchi, tachypneic, wheezes Hosp A/P (1) SOB (shortness of breath) Code(s): R06.02 - SHORTNESS OF BREATH Status: Acute (2) GI bleed Code(s): K92.2 - GASTROINTESTINAL HEMORRHAGE, UNSPECIFIED Status: Acute (3) NSTEMI (non-ST elevated myocardial infarction) Code(s): I21.4 - NON-ST ELEVATION (NSTEMI) MYOCARDIAL INFARCTION Status: Acute (4) CAD (coronary artery disease) Code(s): I25.10 - ATHSCL HEART DISEASE OF [place] CORONARY ARTERY W/O ANG PCTRS Status: Chronic (5) Shock liver Code(s): K72.00 - ACUTE AND SUBACUTE HEPATIC FAILURE WITHOUT COMA Status: Acute (6) Afib Code(s): I48.91 - UNSPECIFIED ATRIAL FIBRILLATION Status: Acute (7) Aortic stenosis Code(s): I35.0 - NONRHEUMATIC AORTIC (VALVE) STENOSIS Status: Acute - Plan pt very anxious and feels that she cannot breath. pt's oxygen sat is 96% cxr indicates some right effusion. will give her a small dose of lasix. will also get abg. updated pt's family. will also order some morphine and xanax. 06/08 will give one dose of lasix. spoke with her sister who states that she will need SNF since her other sister is unable to take care of her. Need to medically optimize pt. pt also having tachy john and had a pause. will make cardiology aware. 06/09 pt received xanax feels well but is drowsy. case managment working on placement. pt did eat her dinner last night. She is not drinking much. will not give her lasix today. will order PT. she may be a candidate for snf vs inpatient hospice. 06/10 spoke with pt's sister who want pt to go to inpatient hospice but she wants it in [place]. will ask watch case polisher. will continue current tx. she was in afib rvr will give her iv dig x1.
[2019-06-10] MEDS: Carvedilol 3.125 MG TAB PO SCH (17:21)
[2019-06-10] MEDS: ALPRAZolam 0.25 MG TAB PO PRN (17:22)
[2019-06-10] MEDS: Melatonin 3 MG TAB PO SCH (20:29)
[2019-06-10] MEDS: Polyethylene Glycol 3350 17 GM Packet PO SCH (20:30)
[2019-06-11] MEDS: Clopidogrel Bisulfate 75 MG TAB PO SCH (09:46)
[2019-06-11] MEDS: Carvedilol 3.125 MG TAB PO SCH ×2 (09:46→18:01)
[2019-06-11] MEDS: hydrALAZINE 25 MG TAB PO SCH ×2 (09:46→20:41)
[2019-06-11] MEDS: Digoxin 0.125 MG TAB PO SCH (09:46)
[2019-06-11] MEDS: Polyethylene Glycol 3350 17 GM Packet PO SCH ×2 (09:47→20:42)
[2019-06-11] MEDS: Acetaminophen 325 MG TAB PO PRN (13:27)
--- NOTE | 2019-06-11 15:40 | PDOC.HOSPP ---
- Subjective Encounter Date: 06/11/19 Encounter Time: 10:15 Subjective: pt up in bed states she feels well. Family at bedside. - Objective Vital Signs & Weight: Vital Signs (12 hours) Temp Pulse Resp BP Pulse Ox 06/11/19 11:20 97.6 F 79 18 112/54 L 100 06/11/19 09:46 91 06/11/19 08:00 99.0 F 91 18 139/61 97 06/11/19 03:50 98.3 F 76 23 H 126/55 L 93 L Weight Admit Weight 105 lb 9.623 oz Weight 105 lb 9.623 oz Most Recent Monitor Data Heart Rate from ECG 65 NIBP 150/79 NIBP BP-Mean 102 Respiration from ECG 21 SpO2 98 I&O: 06/10/19 06/11/19 06/12/19 06:59 06:59 06:59 Intake Total 250 250 Output Total 300 300 Balance -50 -50 Result Diagrams: 06/09/19 04:21 06/09/19 04:21 Hospitalist ROS - Review of Systems Respiratory: denies: cough, dry, shortness of breath, hemoptysis, SOB with excertion, pleuritic pain, sputum, wheezing, other Cardiovascular: denies: chest pain, palpitations, orthopnea, paroxysmal noc. dyspnea, edema, light headedness, other Gastrointestinal: denies: nausea, vomiting, abdominal pain, diarrhea, constipation, melena, hematochezia, other - Medication Medications: Active Medications Generic Name Dose Route Start Last Admin Trade Name Freq PRN Reason Stop Dose Admin Acetaminophen 650 mg 06/03/19 17:46 06/11/19 13:27 Tylenol PO 650 mg Q4H PRN Administration Headache/Fever/Mild Pain (1-3) Alprazolam 0.25 mg 06/07/19 10:15 06/10/19 17:22 Xanax PO 0.25 mg TIDPRN PRN Administration Anxiety Carvedilol 3.125 mg 06/10/19 17:00 06/11/19 09:46 Coreg PO 3.125 mg BID-WM SANJU Administration Clopidogrel Bisulfate 75 mg 06/06/19 09:00 06/11/19 09:46 Plavix PO 75 mg DAILY SANJU Administration Digoxin 0.125 mg 06/11/19 09:00 06/11/19 09:46 Lanoxin PO 0.125 mg DAILY SANJU Administration Hydralazine HCl 50 mg 06/07/19 10:12 06/11/19 09:46 Apresoline PO 50 mg BID SANJU Administration Melatonin 3 mg 06/05/19 21:00 06/10/19 20:29 Melatonin PO 3 mg HS SANJU Administration Pantoprazole Sodium 40 mg 06/05/19 21:00 06/11/19 09:46 Protonix PO 40 mg BID SANJU Administration Polyethylene Glycol 17 gm 06/10/19 21:00 06/11/19 09:47 Miralax PO Not Given BID SANJU - Exam Neck: negative: supple, symmetric, no JVD, no thyromegaly, no lymphadenopathy, no carotid bruit, JVD Heart: negative: RRR, no murmur, no gallops, no rubs, normal peripheral pulses, irregular, diminshed peripheral pulses, murmur present, II/IV, III/IV Respiratory: negative: CTAB, no wheezes, no rales, no ronchi, normal chest expansion, no tachypnea, normal percussion, rales, rhonchi, tachypneic, wheezes Gastrointestinal: negative: soft, non-tender, non-distended, normal bowel sounds , no palpable masses, no hepatomegaly, no splenomegaly, no bruit, no guarding, no rigidity, tender to palpation, distended, diminished bowl sounds, voluntary guarding Hosp A/P (1) SOB (shortness of breath) Code(s): R06.02 - SHORTNESS OF BREATH Status: Acute (2) GI bleed Code(s): K92.2 - GASTROINTESTINAL HEMORRHAGE, UNSPECIFIED Status: Acute (3) NSTEMI (non-ST elevated myocardial infarction) Code(s): I21.4 - NON-ST ELEVATION (NSTEMI) MYOCARDIAL INFARCTION Status: Acute (4) CAD (coronary artery disease) Code(s): I25.10 - ATHSCL HEART DISEASE OF [place] CORONARY ARTERY W/O ANG PCTRS Status: Chronic (5) Shock liver Code(s): K72.00 - ACUTE AND SUBACUTE HEPATIC FAILURE WITHOUT COMA Status: Acute (6) Afib Code(s): I48.91 - UNSPECIFIED ATRIAL FIBRILLATION Status: Acute (7) Aortic stenosis Code(s): I35.0 - NONRHEUMATIC AORTIC (VALVE) STENOSIS Status: Acute - Plan pt very anxious and feels that she cannot breath. pt's oxygen sat is 96% cxr indicates some right effusion. will give her a small dose of lasix. will also get abg. updated pt's family. will also order some morphine and xanax. 06/08 will give one dose of lasix. spoke with her sister who states that she will need SNF since her other sister is unable to take care of her. Need to medically optimize pt. pt also having tachy john and had a pause. will make cardiology aware. 06/09 pt received xanax feels well but is drowsy. case managment working on placement. pt did eat her dinner last night. She is not drinking much. will not give her lasix today. will order PT. she may be a candidate for snf vs inpatient hospice. 06/10 spoke with pt's sister who want pt to go to inpatient hospice but she wants it in [place]. will ask case sealer. will continue current tx. she was in afib rvr will give her iv dig x1. 06/11 pt's family wants her to be transferred to inpatient hospice in [place] since all her family is in [place]. she does get sob at times but she also gets anxious. Her HR is controlled will monitor. will start her on bb. pt has been bradycardiac and then gets tachycardiac. will continue digoxin
[2019-06-11] MEDS: ALPRAZolam 0.25 MG TAB PO PRN (20:41)
[2019-06-11] MEDS: Melatonin 3 MG TAB PO SCH (20:42)
[2019-06-11] MEDS: Fluticasone Propionate Nasal Spray 16 gm Bottle NASAL SCH (21:29)
[2019-06-12] MEDS: ALPRAZolam 0.25 MG TAB PO PRN (02:34)
[2019-06-12] MEDS: hydrALAZINE 25 MG TAB PO SCH ×2 (07:39→20:22)
[2019-06-12] MEDS: Digoxin 0.125 MG TAB PO SCH (07:39)
[2019-06-12] MEDS: Lisinopril 2.5 MG TAB PO SCH (07:40)
[2019-06-12] MEDS: Carvedilol 3.125 MG TAB PO SCH ×2 (07:40→18:06)
[2019-06-12] MEDS: Clopidogrel Bisulfate 75 MG TAB PO SCH (07:40)
[2019-06-12] MEDS: Spironolactone 25 MG TAB PO SCH (07:40)
[2019-06-12] MEDS: Polyethylene Glycol 3350 17 GM Packet PO SCH ×2 (07:41→20:22)
--- NOTE | 2019-06-12 09:56 | PRG ---
DATE OF SERVICE: 06/12/2019 SUBJECTIVE: The patient is seen at bedside, looks mildly anxious, also complaining of right nostril congestion. Denies vomiting, diarrhea, or shortness of breath. OBJECTIVE: VITAL SIGNS: Blood pressure 160/70, temperature 97.5, pulse 81, respirations 22, oxygen saturation 98%. GENERAL: The patient is sitting in bed comfortably, not in distress, but looks mildly anxious. HEENT: Conjunctiva normal. Oral mucosa moist. CHEST: Decreased air entry in bilateral lung braga. HEART: Sounds normal. ABDOMEN: Soft. EXTREMITIES: Negative edema of feet. SKIN: No rash. No cyanosis. IMPRESSION: 1. The patient with [id number] myocardial infarction and aortic stenosis. Cardiology was on board. However, family decided for hospice evaluation. The patient is currently on Coreg, Plavix, and digoxin. We will continue. 2. Hypertension. Continue lisinopril. Continue monitoring blood pressure. 3. Acute anemia, status post PRBC transfusion. Currently, hemoglobin is stable. 4. Nasal stuffiness. Continue Flonase. 5. Deranged LFTs, possible secondary to shock liver. 6. Atrial fibrillation. Currently, heart rate is stable. 7. Marked functional decline and DNR status. DISPOSITION: Pending. Discussed with Melyssa ANAYA. She is interested patient to be transferred to [facility] and case management consulted for discharge planning. Plan discussed with the nursing staff and family members. Job ID: [id number]
--- NOTE | 2019-06-12 15:23 | EKG ---
Test Reason : Blood Pressure : / mmHG Vent. Rate : 127 BPM Atrial Rate : 174 BPM P-R Int : 000 ms QRS Dur : 108 ms QT Int : 294 ms P-R-T Axes : 000 021 177 degrees QTc Int : 427 ms Atrial fibrillation with rapid ventricular response Cannot rule out Anterior infarct , age undetermined Abnormal ECG When compared with ECG of 04-JUN-2019 15:57, Previous ECG has undetermined rhythm, needs review Minimal criteria for Anterior infarct are now Present ST more depressed in Lateral leads T wave inversion more evident in Lateral leads Confirmed by DR. Pavan GALLEGOS ([id number]) on 06/12/2019 3:23:36 PM Referred By: JAZIEL Confirmed By:DR. Pavan GALLEGOS
[2019-06-12] MEDS: Melatonin 3 MG TAB PO SCH (20:21)
[2019-06-13] MEDS: Carvedilol 3.125 MG TAB PO SCH (09:36)
[2019-06-13] MEDS: Digoxin 0.125 MG TAB PO SCH (09:36)
[2019-06-13] MEDS: Clopidogrel Bisulfate 75 MG TAB PO SCH (09:36)
[2019-06-13] MEDS: Spironolactone 25 MG TAB PO SCH (09:36)
[2019-06-13] MEDS: hydrALAZINE 25 MG TAB PO SCH (09:37)
[2019-06-13] MEDS: Lisinopril 2.5 MG TAB PO SCH (09:37)
[2019-06-13] MEDS: Fluticasone Propionate Nasal Spray 16 gm Bottle NASAL SCH (09:37)
[2019-06-13] MEDS: Polyethylene Glycol 3350 17 GM Packet PO SCH (09:48)
[2019-06-13] MEDS ORDERED: Sodium Chloride 0.65% Nasal 44 ML BOT EA NARE PRN (11:56)
[2019-06-13 12:46] VITALS: BP 116/53; TEMP 98.1
[2019-06-13] MEDS: ALPRAZolam 0.25 MG TAB PO PRN (13:58)
--- NOTE | 2019-06-15 12:56 | DIS ---
DATE OF ADMISSION: 06/03/2019 DATE OF DISCHARGE: 06/13/2019 DISCHARGE DIAGNOSES: 1. [id number] myocardial infarction, aortic stenosis, hypertension, and acute anemia. 2. Nasal congestion. 3. Deranged LFTs. 4. Atrial fibrillation. 5. DNR status. 6. Anemia. PHYSICAL EXAMINATION: VITAL SIGNS: Blood pressure 136/62, temperature 97.7, pulse 88, respirations 20, and oxygen saturation 93%. GENERAL: The patient is in no distress. HEENT: Conjunctivae normal. Oral mucosa moist. NECK: Supple. No JVD. CHEST: Normal vesicular breathing. HEART: Heart sounds normal. ABDOMEN: Soft. EXTREMITIES: Negative edema of feet. HOSPITAL SUMMARY: The patient was admitted with generalized weakness, lethargy, and not feeling well. The patient was found to have positive troponin, known case of coronary artery disease, and the patient was evaluated by Cardiology. Cardiology recommended to continue antiplatelet therapy and digoxin for AFib, and the patient was also evaluated by Pulmonary. The patient also developed acute anemia and acute kidney injury, and managed for non-ST elevation [place], acute kidney injury and anemia. The patient got blood transfusion and seen by pharmacy general manager, and the patient had marked generalized weakness and functional decline. Family decided to involve hospice evaluation and the patient currently being discharged to facility in [place], where hospice can follow up. The patient is currently stable, being discharged, and wants to continue hospice evaluation there. Job ID: [id number]
== END 2019-06-13 14:30 | DRG 280 ==
LOC: ERS 11:59 → ERHOLD 14:32 → CCU 17:54 → 2NO 06-06 18:34
PROVIDERS: ADMIT Internal Medicine; ATTEND Internal Medicine
DX: I21.4 Non-ST elevation (NSTEMI) myocardial infarction (principal); I50.43 Acute on chronic combined systolic (congestive) and diastolic (congestive) heart failure; J96.21 Acute and chronic respiratory failure with hypoxia; K72.00 Acute and subacute hepatic failure without coma; N17.9 Acute kidney failure, unspecified; K92.2 Gastrointestinal hemorrhage, unspecified; E87.2 Acidosis; D62 Acute posthemorrhagic anemia; E87.1 Hypo-osmolality and hyponatremia; I13.0 Hypertensive heart and chronic kidney disease with heart failure and stage 1 through stage 4 chronic kidney disease, or unspecified chronic kidney disease; I35.0 Nonrheumatic aortic (valve) stenosis; E86.0 Dehydration; I25.10 Atherosclerotic heart disease of native coronary artery without angina pectoris; D63.1 Anemia in chronic kidney disease; Z51.5 Encounter for palliative care; N18.9 Chronic kidney disease, unspecified; Z87.891 Personal history of nicotine dependence; Z90.710 Acquired absence of both cervix and uterus
CPT/HCPCS: 36415; 36416; 36430; 51701; 71045; 80048; 80053; 80061; 80076; 81003; 81015; 82274; 82330; 82553; 82803; 82805; 83605; 83690; 84484; 85014; 85018; 85025; 85049; 86850; 86900; 86901; 87040; 87086; 93005; 93010; 93306; 93798; 96361; 96365; 96367; A4353; C9113; J0282; J0696; J1160; J1940; J2270; J3370; J7070; P9016